=== PATIENT | female | born 1940 | race Caucasian/White ===

== ENCOUNTER → 2016-10-05 | Day surgery (SDC) | payer OTHER ==
[~2016-10-05] MED LIST: LACTATED RINGER'S 1000 ML INJ 1,000 ML ONE; LISI-363 PO; NORV10TA PO; PROPOFOL 500 MG/50 ML BTL IV ONE; SUCR1TAB PO; ZIAC106.25 PO
--- NOTE | 2016-10-05 12:13 | GIPROC ---
[facility] [address] [facility] [place], [address] COLONOSCOPY PROCEDURE REPORT EXAM DATE: 10/05/2016 PATIENT NAME: Rhea Leon MR #: [id number] BIRTHDATE: 1940 ENDOSCOPIST: Artie Ham MD ORDER #: [id number] WASHING MACHINE REPAIRER: Carol Aguirre RN STATUS: outpatient INDICATIONS: The patient is a 76 yr old female here for a colonoscopy due to anemia, non-specific PROCEDURE PERFORMED: Colonoscopy, diagnostic MEDICATIONS: None and Per Anesthesia. PREP QUALITY: fair ESTIMATED BLOOD LOSS: None CONSENT: The patient understands the risks and benefits of the procedure and understands that these risks include, but are not limited to: sedation, allergic reaction, infection, perforation and/or bleeding. Alternative means of evaluation and treatment include, among others: physical exam, x-rays, and/or surgical intervention. The patient elects to proceed with this endoscopic procedure. medical equipment was checked for proper function. Hand hygiene and appropriate measures for infection prevention was taken. After the risks, benefits and alternatives of the procedure were thoroughly explained, Informed consent was verified, confirmed and timeout was successfully executed by the treatment team. A digital exam revealed no abnormalities of the rectum The EC-3490Li ([id number]) and EC-[id number] ([id number]) endoscope was introduced through the anus and advanced to the cecum, which was identified by both the appendix and ileocecal valve. The instrument was then slowly withdrawn as the colon was fully examined. COLON FINDINGS: Moderate diverticulosis was noted in the sigmoid colon and descending colon. The colon mucosa was otherwise normal. Retroflexed views revealed no abnormalities The scope was then completely withdrawn from the patient and the procedure terminated. ADVERSE EVENTS: There were no complications. IMPRESSIONS: 1. Moderate diverticulosis was noted in the sigmoid colon and descending colon 2. The colon mucosa was otherwise normal 3. Retroflexed views revealed no abnormalities 4. Revealed no abnormalities of the rectum RECOMMENDATIONS: 1. Yearly hemoccult 2. High fiber diet 3. No clear reason for the anemia, if continue, may consider capsule endoscopy RTC in 3 wks check cbc in 2 wks RECALL: Return 5 years Colonoscopy Atrie Ham MD eSigned: Artie Ham MD 10/05/2016 12:13 PM cc: Tamia Perez M.D.
--- NOTE | 2016-10-05 12:23 | GIPROC ---
[facility] [address] [facility] [place], [address] EGD PROCEDURE REPORT EXAM DATE: 10/05/2016 PATIENT NAME: Rhea Leon MR #: [id number] BIRTHDATE: 1940 ATTENDING: Artie Ham MD ORDER #: [id number] POWERHOUSE OPERATOR: Carol Aguirre RN STATUS: outpatient INDICATIONS: The patient is a 76 yr old female here for an EGD due to anemia and H/O partial gastrectomy PROCEDURE PERFORMED: EGD w/ biopsy EGD w/ dilation of esophagus via guidewire MEDICATIONS: None and Per Anesthesia. TOPICAL ANESTHETIC: none CONSENT: The patient understands the risks and benefits of the procedure and understands that these risks include, but are not limited to: sedation, allergic reaction, infection, perforation and/or bleeding. Alternative means of evaluation and treatment include, among others: physical exam, x-rays, and/or surgical intervention. The patient elects to proceed with this endoscopic procedure. medical equipment was checked for proper function. Hand hygiene and appropriate measures for infection prevention was taken. After the risks, benefits and alternatives of the procedure were thoroughly explained, Informed consent was verified, confirmed and timeout was successfully executed by the treatment team. The patient was anesthetized with topical anesthesia and the EC-3490Li ([id number]) endoscope was introduced through the mouth and advanced to the second portion of the duodenum. Retroflexed views revealed a hiatal hernia The gastroscope was then slowly withdrawn and removed. Erythema at surgical anastamosis Bx done. Esophageal stricture s/p dilation savary guide 16 mm. The endoscopy was otherwise normal. ADVERSE EVENTS: There were no complications. IMPRESSIONS: 1. Erythema at surgical anastamosis Bx done 2. Esophageal stricture s/p dilation savary guide 16 mm 3. Normal endoscopy otherwise 4. Retroflexed views revealed a hiatal hernia RECOMMENDATIONS: 1. Await biopsy results. Biopsy results will not be ready for 7-10 days. If you don't hear from us in two weeks, call our office for biopsy results. 2. Avoid NSAIDS 3. Anti-reflux regimen PATIENT CONDITION: stable DISPOSITION: Home REPEAT EXAM: Return as needed for EGD Artie Ham MD eSigned: Artie Ham MD 10/05/2016 12:23 PM cc: Tamia Perez M.D.
== END | disposition home or self-care (01) ==
LOC: ESDC 09:50
PROVIDERS: ATTEND Hospitalist
DX: D64.9 Anemia, unspecified (principal); K57.90 Diverticulosis of intestine, part unspecified, without perforation or abscess without bleeding; K22.2 Esophageal obstruction; K44.9 Diaphragmatic hernia without obstruction or gangrene; K63.89 Other specified diseases of intestine
CPT/HCPCS: 00740; 00810; 43239; 43248; 45378; 88305; 88312; J7120

== ENCOUNTER 2017-03-07 15:14 | Inpatient (IN) | payer OTHER, MEDICARE ==
[~2017-03-07] VITALS: Ht 149.9 cm; Wt 52.4 kg
[~2017-03-07 15:14] MED LIST changes: -LACTATED RINGER'S 1000 ML INJ 1,000 ML ONE; -PROPOFOL 500 MG/50 ML BTL IV ONE
[2017-03-07 15:18] VITALS: BP 133/60; PULSE 113; RESP 22; TEMP 97.3; O2SAT 98
[2017-03-07 15:59] LABS: BLOOD, URINE TRACE (NEG); GLUCOSE,URINE NEG (NEG); KETONE, URINE NEG (NEG); NITRITE,URINE NEG (NEG)
[2017-03-07] MEDS ORDERED: SODIUM CHLOR 0.9% 1000 ML INJ 1,000 ML IV SCH (16:16)
[2017-03-07] MEDS ORDERED: DOESN'T KNOW (16:20)
[2017-03-07] MEDS ORDERED: BUSP10TA PO (16:22)
[2017-03-07] MEDS ORDERED: SODIUM CHLORIDE 0.9% FLUSH 10 ML FLUSH IV FLUSH PRN ×2 (16:30→18:45)
[2017-03-07] MEDS ORDERED: ONDANSETRON HCL 4 MG/2 ML VIAL IVP ONE (16:30)
--- NOTE | 2017-03-07 16:38 | PD ---
HPI Chief Complaint: General Weakness Time Seen by Provider: 16:05 Travel History International Travel<30 days: No Contact w/Intl Traveler<30days: No Traveled to known affect area: No History of Present Illness HPI The patient is a 76-year-old female who presents to the emergency department for multiple complaints. The patient states she was doing well earlier this year until approximately 2-3 months ago when she developed multiple symptoms. The patient complains of intermittent headaches, dizziness, nausea, vomiting, and epigastric abdominal distention. The patient states she underwent workup by her neurologist, Dr. Adler, and had an outpatient CT the brain which revealed scarring from a possible old CVA. She has an appointment tomorrow to see her neurologist. She also complains of intermittent nausea, vomiting, with epigastric pain. The patient recently underwent endoscopy by her wrapper cashier, Dr. Miller, and the patient states she was told she had a hiatal hernia. She also thinks she was diagnosed with gastroparesis. She does note approximately a 13 pound weight loss over the last 6 weeks, secondary to decreased oral intake and decreased appetite. She denies any dysuria, frequency, urgency, or diarrhea. She denies any acute chest pain or shortness of breath. She does note generalized weakness with decreased ability to get out of the chair and ambulate at home, where she lives with her . PFSH Past Medical History Anxiety: Yes COPD: Yes Cerebrovascular Accident: Yes Diminished Hearing: No Gastrointestinal Disorders: Yes (GASTROPARESIS) Hypertension: Yes Neurologic: Yes (VERTIGO) Ulcer: Yes ?: Not Past Surgical History Abdominal Surgery: Yes (STOMACH REROUTING 25 YRS AGO) Hysterectomy: Yes Social History Alcohol Use: No Tobacco Use: No Substance Use: No Allergies-Medications (Allergen,Severity, Reaction): Coded Allergies: No Known Allergies (Unverified Adverse Reaction, Unknown, 03/07/17) Reported Meds & Prescriptions Reported Meds & Active Scripts Active Reported Buspirone (Buspirone HCl) 10 Mg Tab 10 Mg PO BID [Doesn't Know] Review of Systems Except as stated in HPI: all other systems reviewed are Neg General / Constitutional: No: Fever Eyes: Positive: Visual changes HENT: Positive: Headaches, Lightheadedness Cardiovascular: No: Chest Pain or Discomfort Respiratory: No: Shortness of Breath Gastrointestinal: Positive: Nausea, Vomiting, Abdominal Pain, Loss of Appetite , No: Diarrhea Genitourinary: No: Dysuria Musculoskeletal: Positive: Weakness Neurologic: Positive: Weakness, Dizziness Physical Exam Narrative GENERAL: Awake, alert, pleasant 76-year-old female who appears her stated age and is in no acute respiratory distress. SKIN: Focused skin assessment warm/dry. HEAD: Atraumatic. Normocephalic. EYES: Pupils equal and round. Mild pallor noted of the lower lids. ENT: No nasal bleeding or discharge. Slightly dry mucous membranes. Upper and lower dentures in place. NECK: Trachea midline. No JVD. CARDIOVASCULAR: Regular, tachycardic with a heart rate of 105. RESPIRATORY: No accessory muscle use. Clear to auscultation. Breath sounds equal bilaterally. GASTROINTESTINAL: Abdomen soft, palpable mass versus hernia right upper quadrant. Well-healed midline scar. MUSCULOSKELETAL: No obvious deformities. No clubbing. No cyanosis. No edema. Back: No CVA tenderness. No tenderness over the thoracic or lumbar vertebrae. NEUROLOGICAL: Awake and alert. No obvious cranial nerve deficits. Motor grossly within normal limits. Normal speech. Nonfocal. Oriented 4. PSYCHIATRIC: Appropriate mood and affect; insight and judgment normal. Data Data Last Documented VS Vital Signs Date Time Temp Pulse Resp B/P (MAP) Pulse Ox O2 Delivery O2 Flow Rate FiO2 03/07/17 17:35 97.8 88 22 135/57 (83) 98 Room Air Orders Orders Urinalysis - C+S If Indicated (03/07/17 15:22) Complete Blood Count With Diff (03/07/17 16:16) Comprehensive Metabolic Panel (03/07/17 16:16) Lipase (03/07/17 16:16) Lactic Acid (03/07/17 16:16) Ct Abd/Pel W/O Iv Contrast (03/07/17 16:16) Iv Access Insert/Monitor (03/07/17 16:16) Ecg Monitoring (03/07/17 16:16) Oximetry (03/07/17 16:16) Ondansetron Inj (Zofran Inj) (03/07/17 16:30) Sodium Chlor 0.9% 1000 Ml Inj (Ns 1000 M (03/07/17 16:16) Sodium Chloride 0.9% Flush (Ns Flush) (03/07/17 16:30) Electrocardiogram (03/07/17 16:16) Thyroid Stimulating Hormone (03/07/17 16:16) Urine Culture (03/07/17 15:21) Ceftriaxone Inj (Rocephin Inj) (03/07/17 17:15) Sodium Chlor 0.9% 1000 Ml Inj (Ns 1000 M (03/07/17 18:00) Sodium Chlor 0.9% 1000 Ml Inj (Ns 1000 M (03/07/17 18:00) Admit Order (Ed Use Only) (03/07/17 18:10) Labs Laboratory Tests Test 03/07/17 15:21 03/07/17 16:40 Urine Collection Type CLEAN CATCH Urine Color YELLOW Urine Turbidity SLIGHT Urine pH 6.0 Urine Specific [place] 1.020 Urine Protein 30 mg/dL Urine Glucose (UA) NEG mg/dL Urine Ketones NEG mg/dL Urine Occult Blood TRACE Urine Nitrite NEG Urine Bilirubin NEG Urine Leukocyte Esterase SMALL Urine RBC 0-3 /hpf Urine WBC 25-49 /hpf Urine WBC Clumps FEW Urine Squamous Epithelial Cells > 8 /hpf Urine Amorphous Sediment FEW Urine Bacteria MANY /hpf Microscopic Urinalysis Comment CULTURE INDICATED Urine Collection Time 1521 White Blood Count 29.9 TH/MM3 Red Blood Count 3.99 MIL/MM3 Hemoglobin 9.3 GM/DL Hematocrit 28.3 % Mean Corpuscular Volume 70.8 FL Mean Corpuscular Hemoglobin 23.4 PG Mean Corpuscular Hemoglobin Concent 33.0 % Red Cell Distribution Width 17.3 % Platelet Count 583 TH/MM3 Mean Platelet Volume 9.0 FL Neutrophils (%) (Auto) 97.8 % Lymphocytes (%) (Auto) 0.5 % Monocytes (%) (Auto) 1.2 % Eosinophils (%) (Auto) 0.4 % Basophils (%) (Auto) 0.1 % Neutrophils # (Auto) 29.3 TH/MM3 Lymphocytes # (Auto) 0.1 TH/MM3 Monocytes # (Auto) 0.4 TH/MM3 Eosinophils # (Auto) 0.1 TH/MM3 Basophils # (Auto) 0.0 TH/MM3 CBC Comment AUTO DIFF Blood Urea Nitrogen 85 MG/DL Creatinine 1.60 MG/DL Random Glucose 124 MG/DL Total Protein 7.4 GM/DL Albumin 2.1 GM/DL Calcium Level 9.8 MG/DL Alkaline Phosphatase 204 U/L Aspartate Amino Transf (AST/SGOT) 25 U/L Alanine Aminotransferase (ALT/SGPT) 22 U/L Total Bilirubin 0.3 MG/DL Sodium Level 136 MEQ/L Potassium Level 2.9 MEQ/L Chloride Level 101 MEQ/L Carbon Dioxide Level 23.8 MEQ/L Anion Gap 11 MEQ/L Estimat Glomerular Filtration Rate 31 ML/MIN Lactic Acid Level 1.0 mmol/L Lipase 76 U/L Thyroid Stimulating Hormone 3rd Gen 0.564 uIU/ML MDM Medical Decision Making Medical Screen Exam Complete: Yes Emergency Medical Condition: Yes Medical Record Reviewed: Yes Interpretation(s) EKG reveals sinus tachycardia with a heart rate of 106. PVC noted. Last Impressions Abdomen/Pelvis CT 03/07/17 1616 Signed Impressions: Service Date/Time: Tuesday, March 07, 2017 16:49 - CONCLUSION: Large solitary mass in the right lobe of the liver inferiorly. Differential includes either a large metastatic lesion or conceivably large septic emboli. There is also marked induration of the surrounding mesentery. There is a small intra-abdominal wall hernia. No other malignancy is identified or mass is seen. The mass would be amenable to CT-guided biopsy . Atrophic left kidney Kyler Cr MD Laboratory Tests Test 03/07/17 15:21 03/07/17 16:40 Urine Collection Type CLEAN CATCH Urine Color YELLOW Urine Turbidity SLIGHT Urine pH 6.0 Urine Specific [place] 1.020 Urine Protein 30 mg/dL Urine Glucose (UA) NEG mg/dL Urine Ketones NEG mg/dL Urine Occult Blood TRACE Urine Nitrite NEG Urine Bilirubin NEG Urine Leukocyte Esterase SMALL Urine RBC 0-3 /hpf Urine WBC 25-49 /hpf Urine WBC Clumps FEW Urine Squamous Epithelial Cells > 8 /hpf Urine Amorphous Sediment FEW Urine Bacteria MANY /hpf Microscopic Urinalysis Comment CULTURE INDICATED Urine Collection Time 1521 White Blood Count 29.9 TH/MM3 Red Blood Count 3.99 MIL/MM3 Hemoglobin 9.3 GM/DL Hematocrit 28.3 % Mean Corpuscular Volume 70.8 FL Mean Corpuscular Hemoglobin 23.4 PG Mean Corpuscular Hemoglobin Concent 33.0 % Red Cell Distribution Width 17.3 % Platelet Count 583 TH/MM3 Mean Platelet Volume 9.0 FL Neutrophils (%) (Auto) 97.8 % Lymphocytes (%) (Auto) 0.5 % Monocytes (%) (Auto) 1.2 % Eosinophils (%) (Auto) 0.4 % Basophils (%) (Auto) 0.1 % Neutrophils # (Auto) 29.3 TH/MM3 Lymphocytes # (Auto) 0.1 TH/MM3 Monocytes # (Auto) 0.4 TH/MM3 Eosinophils # (Auto) 0.1 TH/MM3 Basophils # (Auto) 0.0 TH/MM3 CBC Comment AUTO DIFF Blood Urea Nitrogen 85 MG/DL Creatinine 1.60 MG/DL Random Glucose 124 MG/DL Total Protein 7.4 GM/DL Albumin 2.1 GM/DL Calcium Level 9.8 MG/DL Alkaline Phosphatase 204 U/L Aspartate Amino Transf (AST/SGOT) 25 U/L Alanine Aminotransferase (ALT/SGPT) 22 U/L Total Bilirubin 0.3 MG/DL Sodium Level 136 MEQ/L Potassium Level 2.9 MEQ/L Chloride Level 101 MEQ/L Carbon Dioxide Level 23.8 MEQ/L Anion Gap 11 MEQ/L Estimat Glomerular Filtration Rate 31 ML/MIN Lactic Acid Level 1.0 mmol/L Lipase 76 U/L Thyroid Stimulating Hormone 3rd Gen 0.564 uIU/ML Differential Diagnosis Differential diagnoses includes symptomatic anemia, hypothyroidism, hyponatremia , dehydration, small bowel obstruction, partial small bowel obstruction, gastroparesis, failure to thrive, carcinoma, UTI, pneumonia, sepsis. Narrative Course IV was established, labs are drawn and sent, and the patient was placed on cardiac telemetry monitoring and continuous pulse oximetry monitoring. EKG was ordered and interpreted. CBC and TSH were sent to lab. CT of the abdomen and pelvis was ordered to evaluate for possible small bowel obstruction/partial small bowel obstruction. CT of the abdomen and pelvis reveals a large hepatic mass, likely metastatic. UA is positive with WBCs, the patient was administered Rocephin. The patient's white count was 29.9 with a BUN of 85, the patient is hemoconcentrated with leukocytosis, was administered 2 L of IV fluids. The patient will be admitted to the hospital for sepsis and possible metastatic hepatic mass with subsequent dehydration and decreased oral intake. I discussed the findings of the CT with the patient at bedside and her . Sepsis Criteria SIRS Criteria (2 or more): Heart rate over 90 Sepsis Criteria (SIRS+source): Infect source susp/known Severe Sepsis (+one): Acute Oliguria/Renal Failure Criteria Outcome: Meets severe sepsis criteria Physician Communication Physician Communication [facility] hospitalist were paged for admission. I discussed the patient with Dr. Thompson who agrees with admission. Diagnosis Primary Impression: Sepsis Qualified Codes: A41.9 - Sepsis, unspecified organism Additional Impressions: UTI (urinary tract infection) Qualified Codes: N30.00 - Acute cystitis without hematuria Dehydration Liver mass, right lobe Admitting Information Admitting Physician Requests: Admit Condition: Stable Jordan Guzman MD Mar 07, 2017 16:38
[2017-03-07 16:48] LABS: METHOD OF COLLECTION CLEAN CATCH; URINE COLOR YELLOW (YELLW/STRAW)
[2017-03-07 16:49] LABS: BACTERIA, URINE MANY /hpf; COMMENT (UR) CULTURE INDICATED; CULTURE IF INDICATED CULTURE INDICATED; RBC, URINE 0-3 /hpf (0-3); SQUAMOUS EPITHELIAL CELL URINE > 8 /hpf (0-5)
[2017-03-07 16:55] VITALS: O2SAT 96
--- NOTE | 2017-03-07 17:14 | RADRPT ---
EXAM DATE/TIME: 03/07/2017 16:49 [facility] COMPARISON: No previous studies available for comparison. INDICATIONS : Weakness with vomiting and epigastric abdominal distention. ORAL CONTRAST: No oral contrast ingested. RADIATION DOSE: 7.04 CTDIvol (mGy) MEDICAL HISTORY : Cerebrovascular disease. Chronic obstructive pulmonary disease. Gastroparesis.Hypertension. SURGICAL HISTORY : Hysterectomy. Stomach surgery. ENCOUNTER: Initial ACUITY: 2 months PAIN SCALE: 6/10 LOCATION: upper quadrant TECHNIQUE: Volumetric scanning of the abdomen and pelvis was performed. Using automated exposure control and ad justment of the mA and/or kV according to patient size, radiation dose was kept as low as reasonably achievable to obtain optimal diagnostic quality images. DICOM format image data is available electro nically for review and comparison. FINDINGS: LOWER LUNGS: The visualized lower lungs are clear. LIVER: There is a large mass in the inferior aspect of the liver. On the axial images it measures 9.4 x 6.4 cm. Its hypodense could be a solitary abnormality. The fat around the lesion is indurated. There are numerous gallstones and noninflamed gallbladder.. SPLEEN: Normal size without lesion. PANCREAS: Within normal limits. KIDNEYS: The left kidney is mildly atrophic.. There is no mass, stone, or hydronephrosis. ADRENAL GLANDS: Within normal limits. VASCULAR: There is no aortic aneurysm but there is dense atherosclerotic disease. BOWEL/MESENTERY: There is diffuse induration of the mesentery around the liver lesion.. ABDOMINAL WALL: There is a small midline fat containing hernia anterior to the level of the large liver lesion. RETROPERITONEUM: There is no lymphadenopathy. BLADDER: No wall thickening or mass. REPRODUCTIVE: Within normal limits. INGUINAL: There is no lymphadenopathy or hernia. MUSCULOSKELETAL: Within normal limits for patient age. CONCLUSION: Large solitary mass in the right lobe of the liver inferiorly. Differential includes either a large m etastatic lesion or conceivably large septic emboli. There is also marked induration of the surroundi ng mesentery. There is a small intra-abdominal wall hernia. No other malignancy is identified or mass is seen. The mass would be amenable to CT-guided biopsy . Atrophic left kidney Kyler Cr MD on March 07, 2017 at 17:07 Board Certified Radiologist. This report was verified electronically.
[2017-03-07] MEDS ORDERED: cefTRIAXone INJ 1,000 MG in SODIUM CHLORIDE 0.9% INJ 100 ML IV ONE (17:15)
[2017-03-07 17:22] LABS: ANION GAP 11 MEQ/L (5-15); BICARBONATE 23.8 MEQ/L (21.0-32.0); BLOOD UREA NITROGEN 85 MG/DL (7-18); CHLORIDE 101 MEQ/L (98-107); SODIUM (NA) 136 MEQ/L (136-145)
[2017-03-07 17:25] LABS: AUTOMATED NEUTROPHIL # 29.3 TH/MM3 (1.8-7.7); BASOPHIL % 0.1 % (0.0-2.0); EOSINOPHIL # 0.1 TH/MM3 (0-0.4); EOSINOPHIL % 0.4 % (0.0-4.0); HEMATOCRIT 28.3 % (35.0-46.0); LYMPH % 0.5 % (9.0-44.0); LYMPHOCYTE # 0.1 TH/MM3 (1.0-4.8); MEAN CELL VOLUME 70.8 FL (80.0-100.0); MEAN CORPUSCULAR HEMOGLOBIN 23.4 PG (27.0-34.0); MONO % 1.2 % (0.0-8.0); NEUT % 97.8 % (16.0-70.0); PLATELET COUNT 583 TH/MM3 (150-450); RED BLOOD COUNT 3.99 MIL/MM3 (4.00-5.30); RED CELL DISTRIBUTION WIDTH 17.3 % (11.6-17.2); WHITE BLOOD COUNT 29.9 TH/MM3 (4.0-11.0)
[2017-03-07 17:31] LABS: POTASSIUM 2.9 MEQ/L (3.5-5.1)
[2017-03-07 17:35] VITALS: BP 135/57; PULSE 88; RESP 22; TEMP 97.8; O2SAT 98
[2017-03-07 17:50] LABS: HEMO FLAGS AUTO DIFF
[2017-03-07 17:57] LABS: ALKALINE PHOSPHATASE 204 U/L (45-117); ALT (GPT) 22 U/L (10-53); AST (GOT) 25 U/L (15-37); GLOMERULAR FILTRATION RATE 31 ML/MIN (>89); TOTAL BILIRUBIN ADULT 0.3 MG/DL (0.2-1.0)
[2017-03-07] MEDS ORDERED: SODIUM CHLOR 0.9% 1000 ML INJ 1,000 ML IV ONE ×2 (18:00)
[2017-03-07 18:17] LABS: BANDS 16 % (0-6); NEUTROPHIL # MANUAL DIFF 29.9 TH/MM3 (1.8-7.7); PLATELET ESTIMATE SMEAR HIGH (NORMAL); PLATELET MORPHOLOGY NORMAL (NORMAL); POLYS (SEG NEUTROPHILS) 84 % (16-70); SCAN/DIFF FINAL DIFF MANUAL; WBC DIFF SAMPLE 100
[2017-03-07] MEDS ORDERED: RESP: ALBUTEROL 2.5 MG/IPRATROPIUM 0.5 MG NEB (PRN) NEB (18:45)
[2017-03-07] MEDS ORDERED: SENNOSIDES 8.6 MG TAB PO PRN (18:45)
[2017-03-07] MEDS ORDERED: NALOXONE HCL 0.4 MG/ML AMP IV PUSH PRN (18:45)
--- NOTE | 2017-03-07 18:51 | HHI.HP ---
HPI Service [facility] Primary Care Physician Tamia Perez MD Admission Diagnosis Sepsis, UTI, dehydration, liver mass, hypokalemia Diagnoses: (1) Sepsis (2) UTI (urinary tract infection) (3) Liver mass, right lobe (4) Dehydration Chief Complaint: weakness Travel History International Travel<30 Days: No Contact w/Intl Traveler <30 Da: No Traveled to Known Affected Are: No Sepsis Criteria SIRS Criteria (2 or more): Heart rate over 90, WBC > 19313, < 4000 or > 10% bands Sepsis Criteria (SIRS+source): Infect source susp/known History of Present Illness Written by Jocelyn Pineda, acting as scribe for Dr. Thompson on 03/07/17 at 18:27. Patient is a 76-year-old female who came to the emergency room complaining of weakness for 2-3 months worsening over the last forty-eight hours. Her finally convinced her to come to the emergency room. Here she has been tachycardic and complaining of pain "all over ". Patient says that she has been followed by multiple doctors for multiple nonspecific complaints including neurology for dizziness, gastroenterology for gastric ulcers and bleeding in the past. At this time she is found to have urinary tract infection by the ER physician. She is also quite dehydrated with electrolyte disturbances. A CT of the abdomen was done and does show a large hepatic mass which has previously been unknown to the patient. She does report a 13 pound weight loss in the last six weeks. She has been unable to eat and had associated nausea and vomiting. She has a history of a hiatal hernia but that has not been a problem recently. She also says she has gastroparesis. She reports urinary frequency and increased fatigue. She notes no specific abdominal pain but does have intermittent diarrhea and constipation without any evidence of upper or lower GI bleeding. The diffuse pain is intermittent and worse with movement. It appears to be musculoskeletal on exam. There are no specific relieving factors for her moderate to severe diffuse pain. The patient has been admitted to the hospital with signs and symptoms of sepsis related to apparent urinary tract infection. She also appears quite volume contracted and will require aggressive intravenous hydration. For these reasons the patient has been admitted to the hospital. Discussed with patient, ER M.D. and spouse at bedside. Review of Systems Constitutional: COMPLAINS OF: Fatigue, Weight loss, DENIES: Fever, Chills Eyes: COMPLAINS OF: Blurred vision, Vision loss (macular degeneration), DENIES : Diplopia Respiratory: DENIES: Cough, Sputum production, Shortness of breath Cardiovascular: DENIES: Chest pain Gastrointestinal: COMPLAINS OF: Abdominal pain, Constipation (intermittent diarrhea and constipation), Diarrhea, DENIES: Black stools, Bloody stools, Nausea, Vomiting Integumentary: DENIES: Rash Except as stated in HPI: all other systems reviewed are Neg Past Family Social History Past Medical History Gastroparesis Hypertension COPD Anxiety Gastric ulcer Vertigo History of CVA Past Surgical History Stomach rerouting 25 years ago from gastric ulcer Hysterectomy Reported Medications Active Reported [Doesn't Know] Allergies: Coded Allergies: No Known Allergies (Unverified Allergy, Unknown, 03/07/17) Active Ordered Medications Current Medications Medications (Trade) Dose Ordered Sig/Latha Route Start Time Stop Time Status Last Admin (NS Flush) 2 ml UNSCH PRN IV FLUSH 03/07/17 16:30 Sodium Chloride 1,000 ml @ 999 mls/hr BOLUS ONCE IV 03/07/17 18:00 03/07/17 19:00 Sodium Chloride 1,000 ml @ 999 mls/hr BOLUS ONCE IV 03/07/17 18:00 03/07/17 19:00 Family History Paternal medical history significant for stroke. Maternal medical history of breast cancer. Sister had breast cancer. Social History Denies any current tobacco use, states she quit 5 y ears ago, uses e-cig. Denies any alcohol use. Denies any illicit drug use. Physical Exam Vital Signs Vital Signs Date Time Temp Pulse Resp B/P (MAP) Pulse Ox O2 Delivery O2 Flow Rate FiO2 03/07/17 17:35 97.8 88 22 135/57 (83) 98 Room Air 03/07/17 16:55 96 03/07/17 15:18 97.3 113 22 133/60 (84) 98 Physical Exam GENERAL: This is an elderly, thin-appearing female patient, lying in bed in no apparent distress. SKIN: No rashes, ecchymoses or lesions. Warm and dry. HEENT: Atraumatic. Normocephalic. Pupils equal round and reactive. Extraocular motions intact. No scleral icterus. No injection or drainage. Nose without bleeding. Airway patent. NECK: Trachea midline. No JVD. Shortened neck. CARDIOVASCULAR: Regular rate and rhythm gallops, or rubs. 3/6 systolic murmur RESPIRATORY: Clear to auscultation. Breath sounds equal bilaterally. No wheezes , rales, or rhonchi. Increase in AP diameter. GASTROINTESTINAL: Abdomen soft, diffusely tender, severe hepatomegaly noted, 8- finger length. MUSCULOSKELETAL: Extremities without clubbing, cyanosis, or edema. No joint tenderness, effusion, or edema noted. NEUROLOGICAL: Awake and alert. Cranial nerves II through XII intact. Motor and sensory grossly within normal limits. Five out of 5 muscle strength in all muscle groups. Normal speech. Laboratory Laboratory Tests Test 03/07/17 15:21 03/07/17 16:40 Urine Collection Type CLEAN CATCH Urine Color YELLOW Urine Turbidity SLIGHT Urine pH 6.0 Urine Specific Derwent 1.020 Urine Protein 30 Urine Glucose (UA) NEG Urine Ketones NEG Urine Occult Blood TRACE Urine Nitrite NEG Urine Bilirubin NEG Urine Leukocyte Esterase SMALL Urine RBC 0-3 Urine WBC 25-49 Urine WBC Clumps FEW Urine Squamous Epithelial Cells > 8 Urine Amorphous Sediment FEW Urine Bacteria MANY Microscopic Urinalysis Comment CULTURE INDICATED Urine Collection Time 1521 White Blood Count 29.9 Red Blood Count 3.99 Hemoglobin 9.3 Hematocrit 28.3 Mean Corpuscular Volume 70.8 Mean Corpuscular Hemoglobin 23.4 Mean Corpuscular Hemoglobin Concent 33.0 Red Cell Distribution Width 17.3 Platelet Count 583 Mean Platelet Volume 9.0 Neutrophils (%) (Auto) 97.8 Lymphocytes (%) (Auto) 0.5 Monocytes (%) (Auto) 1.2 Eosinophils (%) (Auto) 0.4 Basophils (%) (Auto) 0.1 Neutrophils # (Auto) 29.3 Lymphocytes # (Auto) 0.1 Monocytes # (Auto) 0.4 Eosinophils # (Auto) 0.1 Basophils # (Auto) 0.0 CBC Comment AUTO DIFF Differential Total Cells Counted 100 Neutrophils % (Manual) 84 Band Neutrophils % 16 Neutrophils # (Manual) 29.9 Differential Comment FINAL DIFF MANUAL Platelet Estimate HIGH Platelet Morphology Comment NORMAL Red Cell Morphology Comment NORMAL Blood Urea Nitrogen 85 Creatinine 1.60 Random Glucose 124 Total Protein 7.4 Albumin 2.1 Calcium Level 9.8 Alkaline Phosphatase 204 Aspartate Amino Transf (AST/SGOT) 25 Alanine Aminotransferase (ALT/SGPT) 22 Total Bilirubin 0.3 Sodium Level 136 Potassium Level 2.9 Chloride Level 101 Carbon Dioxide Level 23.8 Anion Gap 11 Estimat Glomerular Filtration Rate 31 Lactic Acid Level 1.0 Lipase 76 Thyroid Stimulating Hormone 3rd Gen 0.564 Date/Time Source Procedure Growth Status 03/07/17 15:21 Urine Clean Catch Urine Culture Pending Received Result Diagram: 03/07/17 1640 03/07/17 1640 Imaging Last Impressions Abdomen/Pelvis CT 03/07/17 1616 Signed Impressions: Service Date/Time: Tuesday, March 07, 2017 16:49 - CONCLUSION: Large solitary mass in the right lobe of the liver inferiorly. Differential includes either a large metastatic lesion or conceivably large septic emboli. There is also marked induration of the surrounding mesentery. There is a small intra-abdominal wall hernia. No other malignancy is identified or mass is seen. The mass would be amenable to CT-guided biopsy . Atrophic left kidney Kyler Cr MD Septic Shock Reassessment Septic shock perfusion: reassessment completed Caprini VTE Risk Assessment Caprini VTE Risk Assessment: Mod/High Risk (score >= 2) Caprini Risk Assessment Model Point Value = 1 Point Value = 2 Point Value = 3 Point Value = 5 Age 41-60 Minor surgery BMI > 25 kg/m2 Swollen legs Varicose veins or History of unexplained or recurrent spontaneous Oral contraceptives or hormone replacement Sepsis (< 1 month) Serious lung disease, including pneumonia (< 1 month) Abnormal pulmonary function Acute myocardial infarction Congestive heart failure (< 1 month) History of inflammatory bowel disease Medical patient at bed rest Age 61-74 Arthroscopic surgery Major open surgery (> 45 min) Laparoscopic surgery (> 45 min) Malignancy Confined to bed (> 72 hours) Immobilizing plaster cast Central venous access Age >= 75 History of VTE Family history of VTE Factor V Leiden Prothrombin [id number] Lupus anticoagulant Anticardiolipin antibodies Elevated serum homocysteine Heparin-induced thrombocytopenia Other congenital or acquired thrombophilia Stroke (< 1 month) Elective arthroplasty Hip, pelvis, or leg fracture Acute spinal cord injury (< 1 month) Prophylaxis Regimen Total Risk Factor Score Risk Level Prophylaxis Regimen 0-1 Low Early ambulation 2 Moderate Order ONE of the following: *Sequential Compression Device (SCD) *Heparin 5000 units SQ BID 3-4 Higher Order ONE of the following medications: *Heparin 5000 units SQ TID *Enoxaparin/Lovenox 40 mg SQ daily (WT < 150 kg, CrCl > 30 mL/min) *Enoxaparin/Lovenox 30 mg SQ daily (WT < 150 kg, CrCl > 10-29 mL/min) *Enoxaparin/Lovenox 30 mg SQ BID (WT < 150 kg, CrCl > 30 mL/min) AND/OR *Sequential Compression Device (SCD) 5 or more Highest Order ONE of the following medications: *Heparin 5000 units SQ TID (Preferred with Epidurals) *Enoxaparin/Lovenox 40 mg SQ daily (WT < 150 kg, CrCl > 30 mL/min) *Enoxaparin/Lovenox 30 mg SQ daily (WT < 150 kg, CrCl > 10-29 mL/min) *Enoxaparin/Lovenox 30 mg SQ BID (WT < 150 kg, CrCl > 30 mL/min) AND *Sequential Compression Device (SCD) Assessment and Plan Problem List: (1) Sepsis ICD Code: A41.9 - Sepsis, unspecified organism Status: Acute Plan: Secondary to sepsis Meet sepsis criteria (tachycardia, leukocytosis WBC 29.9) suspected source UTI. Lactic acid 1.0. UA obtained showing small amount of leukocyte esterase and presence of WBC. Urine culture pending follow. Given Rocephin x 1 in ED. Status post 2 L NS bolus in ED. Continue scheduled Rocephin. Continue IVF. (2) UTI (urinary tract infection) ICD Code: N39.0 - Urinary tract infection, site not specified Status: Acute Plan: UA showing presence of WBC. Given IV Rocephin in ED. Follow urine culture, pending. See above for plan. (3) ANU (acute kidney injury) ICD Code: N17.9 - Acute kidney failure, unspecified Plan: suspect secondary to UTI vs dehydration Creatinine on presentation 1.6/GFR 85. Status post 2 L NS bolus in ED. Will continue IVF. Follow BMP in am. Monitor intake and output closely. (4) Liver mass, right lobe ICD Code: R16.0 - Hepatomegaly, not elsewhere classified Status: Acute Plan: Abdominal/Pelvis CT reviewed showing large solitary mass in the right lobe of the liver inferiorly. Marked induration of the surrounding mesentery. Reports of a 13-pound weight loss over the course of 6 weeks. Will also check Lipase level. Will consult GI, appreciate further input and recommendations. Encourage PO intake, advance as tolerated. Zofran available PRN. IR for biopsy Check PT (5) Hypokalemia ICD Code: E87.6 - Hypokalemia Plan: Suspect secondary to dehydration vs poor intake K 2.9 on presentation. Will replete, follow repeat BMP in am. Continue cardiac telemetry, monitor for any arrhythmias. [place] [facility] Phys[place] Certification 2 Midnight Certification Type: Admission for Inpatient Services Order for Inpatient Services The services are ordered in accordance with Medicare regulations or non- Medicare payer requirements, as applicable. In the case of services not specified as inpatient-only, they are appropriately provided as inpatient services in accordance with the 2-midnight benchmark. Estimated LOS (days): 3 3 days is the estimated time the patient will need to remain in the hospital, assuming treatment plan goals are met and no additional complications. Post-Hospital Plan: Not yet determined Medical Decision Making Impression and Plan This note was transcribed by reg [jay]. I, Dr. Tammie Thompson personally performed the history, physical exam, and medical decision making; and confirmed the accuracy of the information in the transcribed note. agree with above Authenticated by Dr. Tammie Thompson on 03/07/17 at 18:52. Problem Qualifiers (1) Sepsis: Qualified Codes: A41.9 - Sepsis, unspecified organism (2) UTI (urinary tract infection): Qualified Codes: N30.00 - Acute cystitis without hematuria Jocelyn Pineda Mar 07, 2017 18:51 Tammie Thompson MD Mar 07, 2017 18:52
[2017-03-07 19:01] LABS: MAGNESIUM 2.1 MG/DL (1.5-2.5)
[2017-03-07 19:03] LABS: INTERNATIONAL NORMALIZED RATIO 1.4 RATIO
--- NOTE | 2017-03-07 19:24 | RADRPT ---
EXAM DATE/TIME: 03/07/2017 18:52 [facility] COMPARISON: No previous studies available for comparison. INDICATIONS : Short of breath MEDICAL HISTORY : Cerebrovascular disease. Chronic obstructive pulmonary disease. Gastroparesis. SURGICAL HISTORY : Hysterectomy. ENCOUNTER: Initial ACUITY: 2 days PAIN SCORE: 0/10 LOCATION: Bilateral chest FINDINGS: The heart size is upper limits of normal. Aorta is tortuous. Surgical clips are seen at the EG juncti on region. The lungs are clear. The lungs do appear hyperinflated. There is widening of the AP dimens ion of the chest. No effusion is seen. The bones are osteopenic. There is a levoscoliosis of the thor acic spine. CONCLUSION: Hyperinflated lungs. German Ibarra MD on March 07, 2017 at 19:21 Board Certified Radiologist. This report was verified electronically.
[2017-03-07] MEDS ORDERED: POTASSIUM PHOSPHATE INJ 30 MMOL in SODIUM CHLOR 0.9% 250 ML INJ 250 ML IV ONE (20:00)
[2017-03-07] MEDS: ENOXAPARIN SODIUM 40 MG/0.4 ML SYRINGE SQ SCH (20:01)
[2017-03-07 20:15] LABS: GAMMA GT 78 U/L (5-55); TRANSFERRIN IRON PROFILE 139 MG/DL (200-360)
[2017-03-07 20:25] VITALS: BP 178/87; TEMP 98.4
[2017-03-07 20:39] VITALS: O2SAT 100
[2017-03-07] MEDS: RESP: ALBUTEROL 2.5 MG/IPRATROPIUM 0.5 MG NEB (SCH) NEB (20:39)
[2017-03-07 20:40] VITALS: BP 176/76; PULSE 113; RESP 27; TEMP 96.2; O2SAT 100
[2017-03-07] MEDS: SODIUM CHLORIDE 0.9% FLUSH 10 ML FLUSH IV FLUSH SCH (21:29)
[2017-03-07] MEDS: SODIUM CHLOR 0.9% 1000 ML INJ 1,000 ML IV SCH (21:48)
[2017-03-08] VITALS (8 sets, daily range): BP systolic 131–182; BP diastolic 56–83; PULSE 66–112; RESP 16–24; TEMP 96.4–99; O2SAT 92–98
[2017-03-08] MEDS: ONDANSETRON HCL 4 MG/2 ML VIAL IVP PRN ×2 (00:09→06:51)
[2017-03-08] MEDS: ACETAMINOPHEN 325 MG TAB PO PRN ×3 (03:06→14:43)
[2017-03-08] MEDS: SODIUM CHLOR 0.9% 1000 ML INJ 1,000 ML IV SCH ×3 (04:33→23:12)
[2017-03-08 06:55] LABS: ALT (GPT) 19 U/L (10-53); ANION GAP 11 MEQ/L (5-15); AST (GOT) 21 U/L (15-37); BICARBONATE 21.5 MEQ/L (21.0-32.0); BLOOD UREA NITROGEN 66 MG/DL (7-18); CHLORIDE 110 MEQ/L (98-107); GLOMERULAR FILTRATION RATE 48 ML/MIN (>89); SODIUM (NA) 142 MEQ/L (136-145)
[2017-03-08 06:59] LABS: ALKALINE PHOSPHATASE 168 U/L (45-117); TOTAL BILIRUBIN ADULT 0.2 MG/DL (0.2-1.0)
[2017-03-08 07:36] LABS: AUTOMATED NEUTROPHIL # 19.7 TH/MM3 (1.8-7.7); BASOPHIL % 0.1 % (0.0-2.0); EOSINOPHIL % 0.1 % (0.0-4.0); HEMATOCRIT 26.2 % (35.0-46.0); LYMPH % 1.1 % (9.0-44.0); LYMPHOCYTE # 0.2 TH/MM3 (1.0-4.8); MEAN CELL VOLUME 71.3 FL (80.0-100.0); MEAN CORPUSCULAR HEMOGLOBIN 22.8 PG (27.0-34.0); MONO % 1.8 % (0.0-8.0); NEUT % 96.9 % (16.0-70.0); PLATELET COUNT 592 TH/MM3 (150-450); RED BLOOD COUNT 3.67 MIL/MM3 (4.00-5.30); RED CELL DISTRIBUTION WIDTH 17.9 % (11.6-17.2); WHITE BLOOD COUNT 20.3 TH/MM3 (4.0-11.0)
[2017-03-08 07:40] LABS: HEMO FLAGS AUTO DIFF
[2017-03-08] MEDS: RESP: ALBUTEROL 2.5 MG/IPRATROPIUM 0.5 MG NEB (SCH) NEB ×3 (07:44→21:00)
[2017-03-08 07:56] LABS: BANDS 1 % (0-6); NEUTROPHIL # MANUAL DIFF 19.9 TH/MM3 (1.8-7.7); POLYS (SEG NEUTROPHILS) 97 % (16-70); WBC DIFF SAMPLE 100
[2017-03-08 07:57] LABS: PLATELET ESTIMATE SMEAR HIGH (NORMAL); PLATELET MORPHOLOGY NORMAL (NORMAL); SCAN/DIFF FINAL DIFF MANUAL
[2017-03-08] MEDS: SODIUM CHLORIDE 0.9% FLUSH 10 ML FLUSH IV FLUSH SCH ×2 (09:00→20:46)
--- NOTE | 2017-03-08 10:29 | HHI.PR ---
Subjective Remarks Follow up sepsis and UTI. Patient seen and examined, sitting on side of bed comfortably. Denies any further pain. Afebrile overnight. Mild tachycardia. Plan for IR to biopsy today. Objective Vitals Vital Signs Date Time Temp Pulse Resp B/P (MAP) Pulse Ox O2 Delivery O2 Flow Rate FiO2 03/08/17 09:53 96.4 110 16 135/56 (82) 92 03/08/17 08:19 18 03/08/17 07:47 96 Nasal Cannula 2.00 03/08/17 04:00 97.5 110 24 159/64 (95) 94 03/08/17 00:00 99.0 109 24 131/57 (81) 98 03/07/17 22:00 Nasal Cannula 2.00 03/07/17 20:40 96.2 113 27 176/76 (109) 100 03/07/17 20:39 100 Nasal Cannula 2.00 03/07/17 20:25 98.4 108 24 178/87 (117) 97 Nasal Cannula 2.00 03/07/17 17:35 97.8 88 22 135/57 (83) 98 Room Air 03/07/17 16:55 96 03/07/17 15:18 97.3 113 22 133/60 (84) 98 I/O 03/07/17 03/07/17 03/07/17 03/08/17 03/08/17 03/08/17 07:00 15:00 23:00 07:00 15:00 23:00 Intake Total 2100 ml 1034 ml Balance 2100 ml 1034 ml Intake IV Total 2100 ml 1034 ml # Voids 6 # Bowel Movements 0 Result Diagram: 03/08/17 0607 03/08/17 0607 Imaging Last Impressions Abdomen/Pelvis CT 03/07/17 1616 Signed Impressions: Service Date/Time: Tuesday, March 07, 2017 16:49 - CONCLUSION: Large solitary mass in the right lobe of the liver inferiorly. Differential includes either a large metastatic lesion or conceivably large septic emboli. There is also marked induration of the surrounding mesentery. There is a small intra-abdominal wall hernia. No other malignancy is identified or mass is seen. The mass would be amenable to CT-guided biopsy . Atrophic left kidney Kyler Cr MD Chest X-Ray 03/07/17 0000 Signed Impressions: Service Date/Time: Tuesday, March 07, 2017 18:52 - CONCLUSION: Hyperinflated lungs. German Ibarra MD Objective Remarks GENERAL: This is an elderly, thin-appearing female patient, in no apparent distress. SKIN: No rashes, ecchymoses or lesions. Warm and dry. HEENT: Atraumatic. Normocephalic. Pupils equal round and reactive. Extraocular motions intact. No scleral icterus. No injection or drainage. Nose without bleeding. Airway patent. NECK: Trachea midline. No JVD. Shortened neck. CARDIOVASCULAR: Regular rate and rhythm gallops, or rubs. 3/6 systolic murmur RESPIRATORY: Clear to auscultation. Breath sounds equal bilaterally. No wheezes , rales, or rhonchi. Increase in AP diameter. GASTROINTESTINAL: Abdomen soft, diffusely tender, severe hepatomegaly noted, 8- finger length. MUSCULOSKELETAL: Extremities without clubbing, cyanosis, or edema. No joint tenderness, effusion, or edema noted. NEUROLOGICAL: Awake and alert. Cranial nerves II through XII intact. Motor and sensory grossly within normal limits. Five out of 5 muscle strength in all muscle groups. Normal speech. A/P Problem List: (1) Sepsis ICD Code: A41.9 - Sepsis, unspecified organism Status: Acute Plan: Secondary to sepsis Meet sepsis criteria (tachycardia, leukocytosis WBC 29.9) suspected source UTI. Lactic acid 1.0. UA obtained showing small amount of leukocyte esterase and presence of WBC. Urine culture pending follow. Blood cultures ordered and pending. Given Rocephin x 1 in ED. Status post 2 L NS bolus in ED. Continue scheduled Rocephin. Continue IVF. (2) UTI (urinary tract infection) ICD Code: N39.0 - Urinary tract infection, site not specified Status: Acute Plan: UA showing presence of WBC. Given IV Rocephin in ED. Will continue. Follow urine culture, pending. See above for plan. (3) ANU (acute kidney injury) ICD Code: N17.9 - Acute kidney failure, unspecified Plan: suspect secondary to UTI vs dehydration Creatinine on presentation 1.6/GFR 85. Status post 2 L NS bolus in ED. Will continue IVF. BMP reviewed today, creatinine 1.1. Monitor intake and output closely. (4) Liver mass, right lobe ICD Code: R16.0 - Hepatomegaly, not elsewhere classified Status: Acute Plan: Abdominal/Pelvis CT reviewed showing large solitary mass in the right lobe of the liver inferiorly. Marked induration of the surrounding mesentery. Reports of a 13-pound weight loss over the course of 6 weeks. Lipase normal. Will consult GI, appreciate further input and recommendations. Encourage PO intake, advance as tolerated. Zofran available PRN. IR for biopsy. PT 14/INR1.4 (5) Hypokalemia ICD Code: E87.6 - Hypokalemia Plan: Suspect secondary to dehydration vs poor intake K 2.9 on presentation. K 3.0 today. Replaced. Follow BMP. Continue cardiac telemetry, monitor for any arrhythmias. Magnesium 2.1. DVT prophylaxis: SCDs. Attending Statement The exam, history, and the medical decision-making described in the above note were completed with the assistance of the mid-level provider. I reviewed and agree with the findings presented. I attest that I had a [id number] encounter with the patient on the same day, and personally performed and documented my assessment and findings in the medical record. Seen and evaluated today Plan of care discussed with patient GENERAL: This is a well-nourished, well-developed patient, feels better today CARDIOVASCULAR: Regular rate and rhythm without murmurs, gallops, or rubs. RESPIRATORY: Increased AP diameter Clear to auscultation. Breath sounds equal bilaterally. No wheezes, rales, or rhonchi. GASTROINTESTINAL: Abdomen soft, non-tender, nondistended. Normal active bowel sounds MUSCULOSKELETAL: Extremities without clubbing, cyanosis, or edema. NEURO: Alert & Oriented x4 to person, place, time, situation. Moves all ext x4 For biopsy tomorrow And IV iron for severe iron deficiency Agree with above Problem Qualifiers (1) Sepsis: Qualified Codes: A41.9 - Sepsis, unspecified organism (2) UTI (urinary tract infection): Qualified Codes: N30.00 - Acute cystitis without hematuria Jocelyn Pineda Mar 08, 2017 10:29 Tammie Thompson MD Mar 08, 2017 13:20
[2017-03-08] MEDS ORDERED: POTASSIUM CHLORIDE 10 MEQ CONTROLLED RELEASE TAB PO ONE (11:00)
[2017-03-08] MEDS: cefTRIAXone INJ 1,000 MG in SODIUM CHLORIDE 0.9% INJ 100 ML IV SCH (14:44)
--- NOTE | 2017-03-08 15:42 | EKG ---
Date Performed: 03/07/2017 Time Performed: 16:29:37 PTAGE: 76 years EKG: SINUS TACHYCARDIA INTERMITTENT VENTRICULAR PREEXCITATION/WPW MODERATE INTRAVENTRICULAR COND UCTION DELAY ABNORMAL ECG Compared to PREVIOUS TRACING , now occasional PVCs present. PREVIOUS TRACIN06/19/2014 13.03 DOCTOR: eKvin Lal Interpretating Date/Time 03/08/2017 15:41:55
[2017-03-08] MEDS ORDERED: LORazepam 2 MG/ML VIAL IV ONE (16:00)
--- NOTE | 2017-03-08 16:54 | PD.RAD ---
Post CT Procedure Prog Note Pre Procedure Diagnosis: (1) Liver mass, right lobe Post Procedure Diagnosis: (1) Liver mass, right lobe Procedure Date: Mar 08, 2017 Supervising Radiologist: Soham Campoverde Anesthesia: Local, Analgesia Plan of Activity Patient to Unit: PACU Patient Condition: Fair See PACS Report for procedural detail/treatment Biopsy Imaging Guidance: CT Side: Right Biopsy Procedure: Liver Specimen: Core Biopsy (18 gauge) Findings: Core friable with ? mucinous coating. Soham Campoverde MD Mar 08, 2017 16:54
[2017-03-08] MEDS ORDERED: LIDOCAINE 1%/EPINEPHrine 1:100,000 SOLN 30 ML VIAL OTHER ONE (17:19)
[2017-03-08] MEDS: IRON SUCROSE INJ 100 MG in SODIUM CHLORIDE 0.9% INJ 100 ML IV SCH (18:40)
[2017-03-09] VITALS (9 sets, daily range): BP systolic 137–171; BP diastolic 69–79; PULSE 108–122; RESP 20–24; TEMP 98.4–102; O2SAT 92–98
[2017-03-09 06:25] LABS: AUTOMATED NEUTROPHIL # 10.5 TH/MM3 (1.8-7.7); BASOPHIL % 0.1 % (0.0-2.0); EOSINOPHIL % 0.3 % (0.0-4.0); HEMATOCRIT 22.5 % (35.0-46.0); LYMPHOCYTE # 0.1 TH/MM3 (1.0-4.8); MEAN CELL VOLUME 70.4 FL (80.0-100.0); MEAN CORPUSCULAR HEMOGLOBIN 22.9 PG (27.0-34.0); MEAN CORPUSCULAR HGB CONC 32.5 % (32.0-36.0); MONO % 3.2 % (0.0-8.0); NEUT % 95.4 % (16.0-70.0); PLATELET COUNT 543 TH/MM3 (150-450); RED BLOOD COUNT 3.19 MIL/MM3 (4.00-5.30); RED CELL DISTRIBUTION WIDTH 18.1 % (11.6-17.2); WHITE BLOOD COUNT 10.9 TH/MM3 (4.0-11.0)
[2017-03-09 06:35] LABS: HEMO FLAGS AUTO DIFF
[2017-03-09 06:58] LABS: ALKALINE PHOSPHATASE 135 U/L (45-117); ALT (GPT) 15 U/L (10-53); ANION GAP 11 MEQ/L (5-15); AST (GOT) 14 U/L (15-37); BLOOD UREA NITROGEN 50 MG/DL (7-18); CHLORIDE 119 MEQ/L (98-107); GLOMERULAR FILTRATION RATE 71 ML/MIN (>89); POTASSIUM 3.1 MEQ/L (3.5-5.1); SODIUM (NA) 150 MEQ/L (136-145); TOTAL BILIRUBIN ADULT 0.3 MG/DL (0.2-1.0)
[2017-03-09 07:18] LABS: KERATOCYTES 1+ (NORMAL); OVALOCYTES 1+ (NORMAL); SCAN/DIFF AUTO DIFF CONFIRMED; TARGET CELLS 1+ (NORMAL)
[2017-03-09] MEDS: RESP: ALBUTEROL 2.5 MG/IPRATROPIUM 0.5 MG NEB (SCH) NEB ×3 (07:40→19:45)
--- NOTE | 2017-03-09 08:31 | MB ---
cc: YASSINE BERGMAN M.D. DATE OF CONSULTATION 03/08/2017 DATE OF [address] Ramires[address] REASON FOR REFERRAL Liver mass and anemia. Thank you for the consultation. HISTORY OF PRESENT ILLNESS A 76-year-old lady who is known to our practice from before. She has a history of peptic ulcer disease with gastrectomy. She also has a history of a large hiatal hernia in the chest and chronic nausea, gastroparesis and delayed gastric emptying. The patient was seen in our office in the last few months for anemia and the nausea. She had an upper endoscopy which showed partial gastrectomy and some erythema at the surgical anastomosis of hernia. She had a colonoscopy which was unremarkable. The patient was doing okay but according to her daughter she is deteriorating in the last few weeks ago. She is having generalized body aches and discomfort, lack of appetite and some weight loss. Her brought her to the hospital because of the generalized weakness. She apparently was not able to eat with nausea and vomiting and lack of appetite for the last few weeks. The patient is currently lying in bed sleepy because she had a liver mass biopsied by radiology. She is arousable but for the most part sleepy. REVIEW OF SYSTEMS From the chart and from her daughter generalized body weakness and malaise. She denied any rectal bleeding but she had some diarrhea alternating with constipation. Otherwise all 12-point review of systems is negative except as in the HPI. PAST SURGICAL HISTORY 1. Gastric ulcer with partial gastrectomy. 2. Hysterectomy. PAST MEDICAL HISTORY 1. Gastroparesis. 2. Hypertension. 3. Gastric ulcer. 4. COPD. 5. Vertigo. 6. CVA. ALLERGIES No known drug allergies. MEDICATIONS Reviewed in the chart. FAMILY HISTORY Significant for stroke and breast cancer. SOCIAL HISTORY No tobacco at least for 5 years. No alcohol or drugs. PHYSICAL EXAMINATION GENERAL: The patient is arousable, sedated secondary to liver biopsy. VITAL SIGNS: Stable. HEENT: Pupils are round and reactive to light. NECK: Supple. BACK: The patient has some scoliosis. CHEST: Clear to auscultation and percussion. CARDIAC: Regular rate and rhythm with 3/6 systolic murmur. ABDOMEN: Soft, mild discomfort and tenderness, but most likely patient not complaining because of pain medication. Positive bowel sounds. NEUROLOGIC: The patient is sleepy because of medication. No range of motion abnormality or limitation. LABORATORY White count today 20.3, yesterday 29.9. Hemoglobin 8.4, platelets 592. INR 1.4. Liver function tests are okay except alkaline phosphatase of 168, albumin 1.7. Vitamin-B12 2000. Lipase was normal at 76. Iron study: Total iron-binding capacity 195 and saturation 5.7. Creatinine 1.1, on admission was 1.6. IMAGING CT scan: A large solitary mass in the right lobe of the liver. Differential includes large metastatic lesion or conceivably large septic emboli. There is also marked induration of the surrounding mesentery and intra-abdominal wall hernia. No other malignancies or mass identified. ASSESSMENT A 76-year-old lady who has a history of peptic ulcer disease status post gastrectomy. The patient also has chronic anemia. Anemia is worse in the last few weeks and she has generalized weakness and fatigue. She was found to have a UTI and liver mass, questionable infectious versus malignancy. The patient had recent upper endoscopy and colonoscopy which did not show any malignancy. RECOMMENDATIONS 1. Continue treatment with antibiotics for UTI. 2. Await liver biopsy results. 3. May feed patient as tolerated. 4. Further plan depending on the result of the biopsy and how she is doing in the hospital. MD ROXANNE Ramos/ZULY /8:44 PM /8:10 AM
--- NOTE | 2017-03-09 08:38 | HHI.GIFU ---
Subjective Remarks patient is more awake today, eating breakfast, c/o abdominal pain at site of liver Bx, still feels very weak Objective Vitals I&O Vital Signs Date Time Temp Pulse Resp B/P (MAP) Pulse Ox O2 Delivery O2 Flow Rate FiO2 03/09/17 08:00 98.5 108 24 167/79 (108) 92 03/09/17 07:42 94 21 03/09/17 00:00 99.0 115 20 171/77 (108) 95 03/08/17 21:00 94 Nasal Cannula 1.00 03/08/17 20:00 96.5 66 20 182/83 (116) 94 03/08/17 20:00 Nasal Cannula 2.00 03/08/17 18:48 20 03/08/17 18:34 96.7 112 18 144/67 (92) 94 03/08/17 16:13 18 03/08/17 14:04 97.5 108 16 148/65 (92) 96 03/08/17 10:47 Nasal Cannula 1.00 03/08/17 09:53 96.4 110 16 135/56 (82) 92 I/O 03/08/17 03/08/17 03/08/17 03/09/17 03/09/17 03/09/17 07:00 15:00 23:00 07:00 15:00 23:00 Intake Total 1034 ml 1200 ml 1460 ml Output Total 400 ml Balance 1034 ml 1200 ml 1060 ml Intake Oral 500 ml 240 ml IV Total 1034 ml 700 ml 1220 ml Output Urine Total 400 ml # Voids 6 3 8 1 # Bowel Movements 0 Laboratory Laboratory Tests Test 03/09/17 05:53 White Blood Count 10.9 Red Blood Count 3.19 Hemoglobin 7.3 Hematocrit 22.5 Mean Corpuscular Volume 70.4 Mean Corpuscular Hemoglobin 22.9 Mean Corpuscular Hemoglobin Concent 32.5 Red Cell Distribution Width 18.1 Platelet Count 543 Mean Platelet Volume 8.5 Neutrophils (%) (Auto) 95.4 Lymphocytes (%) (Auto) 1.0 Monocytes (%) (Auto) 3.2 Eosinophils (%) (Auto) 0.3 Basophils (%) (Auto) 0.1 Neutrophils # (Auto) 10.5 Lymphocytes # (Auto) 0.1 Monocytes # (Auto) 0.3 Eosinophils # (Auto) 0.0 Basophils # (Auto) 0.0 CBC Comment AUTO DIFF Differential Comment AUTO DIFF CONFIRMED Target Cells 1+ Ovalocytes 1+ Keratocytes 1+ Blood Urea Nitrogen 50 Creatinine 0.78 Random Glucose 123 Total Protein 5.6 Albumin 1.5 Calcium Level 7.7 Alkaline Phosphatase 135 Aspartate Amino Transf (AST/SGOT) 14 Alanine Aminotransferase (ALT/SGPT) 15 Total Bilirubin 0.3 Sodium Level 150 Potassium Level 3.1 Chloride Level 119 Carbon Dioxide Level 20.0 Anion Gap 11 Estimat Glomerular Filtration Rate 71 Date/Time Source Procedure Growth Status 03/07/17 19:10 Blood Peripheral Aerobic Blood Culture - Preliminary NO GROWTH IN 1 DAY Resulted 03/07/17 19:10 Blood Peripheral Anaerobic Blood Culture - Preliminary NO GROWTH IN 1 DAY Resulted 03/07/17 15:21 Urine Clean Catch Urine Culture - Preliminary Gram Negative Amado Resulted Physical Exam HEENT: Pupils round and reactive to light; normocephalic; atraumatic; no jaundice. Throat is clear. NECK: Neck is supple, no JVD, no lymphadenopathy. CHEST: Chest is clear to auscultation and percussion. CARDIAC: Regular rate and rhythm with no murmur gallop or rubs. ABDOMEN: Soft, nondistended, moderate tenderness mostly the upper abdomen; no hepatosplenomegaly; bowel sounds are present in all four quadrants. EXTREMITIES: No clubbing, cyanosis, or edema. SKIN: Normal; no rash; no jaundice. PATTERN LEASE INSPECTOR: No focal deficits; alert and oriented times three. Assessment and Plan Plan Patient is a 76-year-old lady with abdominal pain general weakness nausea, found to have a mass in the liver, this was biopsied yesterday, patient complaining of abdominal pain, she dropped her hemoglobin from 8.4-7.3 I had a discussion with Dr. Cochran who performed a liver biopsy We will plan on doing abdominal CT scan with IV contrast Await biopsy results Give 1 unit of packed RBC Artie Ham MD Mar 09, 2017 08:38
[2017-03-09] MEDS ORDERED: SODIUM CHLOR 0.9% 250 ML INJ 250 ML IV ONE (09:00)
[2017-03-09] MEDS: SODIUM CHLORIDE 0.9% FLUSH 10 ML FLUSH IV FLUSH SCH ×2 (09:00→21:03)
[2017-03-09] MEDS ORDERED: FUROSEMIDE 20 MG/2 ML VIAL IV PUSH ONE (09:00)
--- NOTE | 2017-03-09 09:01 | HHI.PR ---
Subjective Remarks Follow-up for sepsis, UTI, liver mass. Patient is somewhat lethargic. However she does not have any acute concerns. She denies any chest pain, shortness of breath, fever or chills. Objective Vitals Vital Signs Date Time Temp Pulse Resp B/P (MAP) Pulse Ox O2 Delivery O2 Flow Rate FiO2 03/09/17 08:00 98.5 108 24 167/79 (108) 92 03/09/17 07:42 94 21 03/09/17 00:00 99.0 115 20 171/77 (108) 95 03/08/17 21:00 94 Nasal Cannula 1.00 03/08/17 20:00 96.5 66 20 182/83 (116) 94 03/08/17 20:00 Nasal Cannula 2.00 03/08/17 18:48 20 03/08/17 18:34 96.7 112 18 144/67 (92) 94 03/08/17 16:13 18 03/08/17 14:04 97.5 108 16 148/65 (92) 96 03/08/17 10:47 Nasal Cannula 1.00 03/08/17 09:53 96.4 110 16 135/56 (82) 92 I/O 03/08/17 03/08/17 03/08/17 03/09/17 03/09/17 03/09/17 07:00 15:00 23:00 07:00 15:00 23:00 Intake Total 1034 ml 1200 ml 1460 ml Output Total 400 ml Balance 1034 ml 1200 ml 1060 ml Intake Oral 500 ml 240 ml IV Total 1034 ml 700 ml 1220 ml Output Urine Total 400 ml # Voids 6 3 8 1 # Bowel Movements 0 Result Diagram: 03/09/17 0553 03/09/17 0553 Imaging Last Impressions Abdomen/Pelvis CT 03/09/17 0000 Signed Impressions: Service Date/Time: Thursday, March 09, 2017 08:56 - CONCLUSION: 1. No hemorrhage observed. 2. Complex cystic and solid mass associated with the fundus of the gallbladder and right lobe of the liver worrisome for possible cholangiocarcinoma. 3. New small bilateral pleural effusions and associated atelectasis. 4. Small volume ascites is stable. 5. Colonic diverticulosis. 6. Small hiatal hernia. Eitan Jensen Jr., MD Liver Biopsy CT 03/07/17 0000 Signed Impressions: Service Date/Time: Wednesday, March 08, 2017 15:55 - CONCLUSION: 1. Uncomplicated CT guided biopsy. 2. Two biopsy samples were obtained. Both samples were somewhat friable and appear to contain a mucoid coat or white exudate. 3. Cholelithiasis. There appears to be some abnormal thickening along the anterior wall of the gallbladder. Soham Campoverde MD Chest X-Ray 03/07/17 0000 Signed Impressions: Service Date/Time: Tuesday, March 07, 2017 18:52 - CONCLUSION: Hyperinflated lungs. German Ibarra MD Objective Remarks GENERAL: Alert, somewhat lethargic SKIN: Warm and dry. HEAD: Normocephalic. EYES: No scleral icterus. No injection or drainage. NECK: Supple, trachea midline. No JVD or lymphadenopathy. CARDIOVASCULAR: Regular rate and rhythm without murmurs, gallops, or rubs. RESPIRATORY: Breath sounds equal bilaterally. No accessory muscle use. GASTROINTESTINAL: Abdomen soft, non-tender, nondistended. MUSCULOSKELETAL: No cyanosis, or edema. BACK: Nontender without obvious deformity. No CVA tenderness. Procedures CT-guided liver mass biopsy 03/08/2017. A/P Problem List: (1) Sepsis ICD Code: A41.9 - Sepsis, unspecified organism Status: Acute (2) UTI (urinary tract infection) ICD Code: N39.0 - Urinary tract infection, site not specified Status: Acute (3) ANU (acute kidney injury) ICD Code: N17.9 - Acute kidney failure, unspecified (4) Liver mass, right lobe ICD Code: R16.0 - Hepatomegaly, not elsewhere classified Status: Acute (5) Hypokalemia ICD Code: E87.6 - Hypokalemia Assessment and Plan Ms. Leon is a 76-year-old female with a history of peptic ulcer disease with gastrectomy who came to the emergency department due to generalized weakness. ED workup indicated possible UTI, sepsis. CT abdomen pelvis also indicated a large solitary mass in the right lobe of the liver inferiorly. Patient reported 13 pound weight loss over [address]-guided biopsy of the liver mass on 03/08/2017. 03/09/2017: Patient underwent liver biopsy on 03/08/2017. Her hemoglobin dropped from 8.4-->7.3. Patient also was lethargic today. Due to concern over intra-abdominal hemorrhage and after discussing with GI attending and interventional radiologist Dr. Campoverde, we obtained a STAT CT abdomen pelvis to make sure there is no intra-abdominal hemorrhage. I evaluated patient prior to CT abdomen pelvis. Patient appeared somewhat lethargic. We also ordered stat blood transfusion 1 unit and 1 unit on hold. After CT abdomen was completed, I discussed with interventional radiology again and determined that there is no active bleeding currently. We'll continue to provide supportive care including blood transfusion. I checked on again in the afternoon. Patient's daughters are in the room. Patient is currently doing little bit better according to patient's daughter who is a practicing nurse. Total critical care time spent over 45 minutes. - Sepsis (tachycardia, leukocytosis WBC 29.9, UTI) - Urinary tract infection - Patient was empirically started on ceftriaxone. - Culture growing Enterobacter and Citrobacter. Both sensitive to ciprofloxacin - We'll switch antibiotics from ceftriaxone to ciprofloxacin 400 mg IV every 12 hours. - Probable GI blood loss anemia - Hgb dropped from 9.4 --> 8.4 --> 7.3. - GI is following. - Will transfuse one unit of PRBCs and keep 1 unit on hold. - Solitary liver mass - Gallbladder mass - complex cystic and solid mass associated with the fundus of the gallbladder. - Status post biopsy by interventional radiology. - I discussed with interventional radiologist who stated that there is a soft tissue density near the gallbladder as well. - CT abdomen pelvis on 03/09/2017 indicates possible cholangiocarcinoma. - Follow biopsy results, continue ciprofloxacin 400 mg IV every 12 hours. - Hypokalemia - Hypernatremia - Potassium went from 2.9 --> 3.1. - Sodium increased from 142 --> 150. - We'll discontinue normal saline and start D5W at 84 cc/h. - Will provide KCL bolus 20mEQ X 2 today. And KCL PO 20meQ Qday. - Obtain BMP in the morning. - Acute kidney injury - Creatinine improved from 1.60 -->0.78. Full code. SCDs for now due to concern over GI bleed/anemia. Problem Qualifiers (1) Sepsis: Qualified Codes: A41.9 - Sepsis, unspecified organism (2) UTI (urinary tract infection): Qualified Codes: N30.00 - Acute cystitis without hematuria Boris Ramires 19, 2017 9:01 am
[2017-03-09] MEDS ORDERED: IOHEXOL 350 MG/ML 10 ML VIAL (for RAD DIAG) IVCONTRAST ONE (09:11)
--- NOTE | 2017-03-09 09:41 | RADRPT ---
EXAM DATE/TIME: 03/09/2017 08:56 [facility] COMPARISON: CT ABDOMEN & PELVIS W/O CONTRAST, March 07, 2017, 16:49. CT NEEDLE BIOPSY LIVER, March 08 7, 15:55. INDICATIONS : Patient complains of abdominal pain at site of liver biopsy which was performed yesterday afternoon. IV CONTRAST: 75 cc Omnipaque 350 (iohexol) IV ORAL CONTRAST: No oral contrast ingested. RADIATION DOSE: 7.41 CTDIvol (mGy) MEDICAL HISTORY : Cerebrovascular disease. Chronic obstructive pulmonary disease. Gastroparesis.Hypertension. SURGICAL HISTORY : Hysterectomy. Stomach surgery. ENCOUNTER: Subsequent ACUITY: 2 days PAIN SCALE: 7/10 LOCATION: Right abdomen TECHNIQUE: Volumetric scanning of the abdomen and pelvis was performed. Using automated exposure control and ad justment of the mA and/or kV according to patient size, radiation dose was kept as low as reasonably achievable to obtain optimal diagnostic quality images. DICOM format image data is available electro nically for review and comparison. FINDINGS: LOWER LUNGS: Small bilateral pleural effusions with associated passive atelectasis are new from the prior exam. LIVER: There is a mixed density largely cystic mass occupying much of the tip of the liver. There is soft ti ssue involving the adjacent gallbladder wall near the fundus that is contiguous with the adjacent christian er parenchyma. A small curvilinear fluid collection is seen anterior to the tip of the liver. These f indings are all stable from the prior study. No hemorrhage. Portal vein remains patent. SPLEEN: Normal size without lesion. PANCREAS: Within normal limits. KIDNEYS: Normal in size and shape. There is no mass, stone or hydronephrosis. Tiny bilateral cortical renal c ysts. These measure approximately 1 cm in size. ADRENAL GLANDS: Within normal limits. VASCULAR: Diffuse calcified plaque involving the aorta and inflow vessels. No gross aneurysmal change. BOWEL/MESENTERY: The stomach, small bowel, and colon demonstrate no acute abnormality. There is no free intraperitone al air. Scattered colonic diverticuli without acute inflammation. Small volume free fluid. ABDOMINAL WALL: There is a small ventral hernia containing omental fat high within the right upper quadrant. This is anterior to the right lobe of the liver. RETROPERITONEUM: There is no lymphadenopathy. BLADDER: No wall thickening or mass. REPRODUCTIVE: Within normal limits. INGUINAL: There is no lymphadenopathy or hernia. MUSCULOSKELETAL: Within normal limits for patient age. CONCLUSION: 1. No hemorrhage observed. 2. Complex cystic and solid mass associated with the fundus of the gallbladder and right lobe of the liver worrisome for possible cholangiocarcinoma. 3. New small bilateral pleural effusions and associated atelectasis. 4. Small volume ascites is stable. 5. Colonic diverticulosis. 6. Small hiatal hernia. Eitan Jensen Jr., MD on March 09, 2017 at 9:17 Board Certified Radiologist. This report was verified electronically.
[2017-03-09] MEDS: IRON SUCROSE INJ 100 MG in SODIUM CHLORIDE 0.9% INJ 100 ML IV SCH (10:49)
[2017-03-09] MEDS: DEXTROSE 5% IN WATE 1000ML INJ 1,000 ML IV SCH ×2 (10:50→21:04)
[2017-03-09] MEDS: cefTRIAXone INJ 1,000 MG in SODIUM CHLORIDE 0.9% INJ 100 ML IV SCH (10:50)
[2017-03-09] MEDS: ACETAMINOPHEN 325 MG TAB PO PRN ×2 (11:55→18:44)
--- NOTE | 2017-03-09 13:21 | RADRPT ---
EXAM DATE/TIME: 03/08/2017 15:55 [facility] COMPARISON: No previous studies available for comparison. INDICATIONS : Liver mass. SEDATION TIME: 30 minutes BIOPSY SITE: Right liver MEDICATION(S): 1.) 2 mg lorazepam (Ativan) IV 2.) 100 mcg fentanyl (Sublimaze) IV DEVICE(S): 1.) 18 gauge Temno core biopsy needle MEDICAL HISTORY : Cerebrovascular disease. Gastroparesis. Chronic obstructive pulmonary disease. Hypertension. SURGICAL HISTORY : Hysterectomy. Stomach surgery. ENCOUNTER: Initial ACUITY: 1 day PAIN SCORE: 0/10 LOCATION: Right abdomen A total of two core specimen(s) were obtained and sent to the laboratory for pathologic evaluation. PROCEDURE: 1. CT guided liver biopsy. 2. Conscious sedation with continuous EKG and oximetry monitoring. 3. EKG and oximetry remained stable throughout the procedure. Prior to the procedure informed consent was obtained. Any appropriate prior imaging studies were rev iewed. Using automated exposure control and adjustment of the mA and/or kV according to patient size, radiat ion dose was kept as low as reasonably achievable to obtain optimal diagnostic quality images. DICOM format image data is available electronically for review and comparison. The site was prepped in a sterile fashion. Full sterile technique was used, including cap, mask, allyn rile gloves and gown and a large sterile sheet. Hand hygiene and 2% chlorhexidine and/or betadine/al cohol prep was utilized per protocol for cutaneous antisepsis. The skin and subcutaneous tissues wer e infiltrated with local anesthetic solution. With CT guidance the previously identified target was localized. Area with heterogeneous with predomi amna low density area in the also appears to be some increased soft tissue density near the anterior wall of the gallbladder becomes contiguous with the posterior wall liver on this noncontrasted study. The patient also has gall stones. Biopsy was performed using the prescribed needle as above. First sample was very friable and appear to have a mucoid like coat. Therefore, a second biopsy was obtained more inferiorly. Adequate hemosta sis was obtained with compression at the puncture site. Follow-up CT scan reveals no hemorrhage. The patient tolerated the procedure well and there were no complications. The patient was returned to the Radiology Outpatient Unit in stable condition. CONCLUSION: 1. Uncomplicated CT guided biopsy. 2. Two biopsy samples were obtained. Both samples were somewhat friable and appear to contain a mucoi d coat or white exudate. 3. Cholelithiasis. There appears to be some abnormal thickening along the anterior wall of the gallbl adder. Soham Campoverde MD on March 09, 2017 at 13:06 Board Certified Radiologist. This report was verified electronically.
[2017-03-09] MEDS: CIPROFLOXACIN 400 MG PREMIX 200 ML IV SCH (17:44)
[2017-03-09] MEDS: POTASSIUM CHLOR 20 MEQ PREMIX 100 ML IV SCH ×2 (17:44→21:03)
[2017-03-09] MEDS: ACETAMINOPHEN 650 MG/20.3 ML UDC PO PRN (21:02)
[2017-03-09] MEDS: ENOXAPARIN SODIUM 40 MG/0.4 ML SYRINGE SQ SCH (21:03)
[2017-03-10] VITALS (8 sets, daily range): BP systolic 137–146; BP diastolic 65–75; PULSE 100–119; RESP 20–24; TEMP 97.9–100.2; O2SAT 94–97
[2017-03-10] MEDS: ACETAMINOPHEN 650 MG/20.3 ML UDC PO PRN ×3 (04:23→22:47)
[2017-03-10] MEDS: CIPROFLOXACIN 400 MG PREMIX 200 ML IV SCH ×2 (05:47→17:23)
[2017-03-10 06:00] LABS: AUTOMATED NEUTROPHIL # 11.9 TH/MM3 (1.8-7.7); BASOPHIL % 0.1 % (0.0-2.0); EOSINOPHIL # 0.1 TH/MM3 (0-0.4); EOSINOPHIL % 0.8 % (0.0-4.0); HEMATOCRIT 26.9 % (35.0-46.0); LYMPH % 1.3 % (9.0-44.0); LYMPHOCYTE # 0.2 TH/MM3 (1.0-4.8); MEAN CELL VOLUME 71.5 FL (80.0-100.0); MEAN CORPUSCULAR HEMOGLOBIN 22.5 PG (27.0-34.0); MEAN CORPUSCULAR HGB CONC 31.5 % (32.0-36.0); MONO % 4.3 % (0.0-8.0); NEUT % 93.5 % (16.0-70.0); PLATELET COUNT 492 TH/MM3 (150-450); RED BLOOD COUNT 3.77 MIL/MM3 (4.00-5.30); WHITE BLOOD COUNT 12.7 TH/MM3 (4.0-11.0)
[2017-03-10] MEDS: ONDANSETRON HCL 4 MG/2 ML VIAL IVP PRN ×3 (06:12→22:48)
[2017-03-10 06:21] LABS: HEMO FLAGS AUTO DIFF
[2017-03-10 06:41] LABS: BICARBONATE 22.2 MEQ/L (21.0-32.0)
[2017-03-10 07:18] LABS: KERATOCYTES OCC (NORMAL); OVALOCYTES 1+ (NORMAL); TARGET CELLS 1+ (NORMAL)
[2017-03-10 07:19] LABS: SCAN/DIFF AUTO DIFF CONFIRMED
[2017-03-10] MEDS: RESP: ALBUTEROL 2.5 MG/IPRATROPIUM 0.5 MG NEB (SCH) NEB ×3 (07:31→19:22)
[2017-03-10] MEDS ORDERED: POTASSIUM CHLORIDE 20 MEQ CONTROLLED RELEASE TAB PO SCH (09:00)
[2017-03-10] MEDS: POTASSIUM CHLOR 20 MEQ PREMIX 100 ML IV SCH ×4 (09:31→17:23)
[2017-03-10] MEDS: IRON SUCROSE INJ 100 MG in SODIUM CHLORIDE 0.9% INJ 100 ML IV SCH (09:31)
[2017-03-10] MEDS: SODIUM CHLORIDE 0.9% FLUSH 10 ML FLUSH IV FLUSH SCH ×2 (09:31→21:00)
[2017-03-10] MEDS: DEXTROSE 5% IN WATE 1000ML INJ 1,000 ML IV SCH (09:32)
--- NOTE | 2017-03-10 10:09 | HHI.PR ---
Subjective Remarks Follow-up for sepsis, UTI, liver mass. Patient is currently doing well. Much improved compared to yesterday. Denies any chest pain, shortness of breath, fever or chills. Objective Vitals Vital Signs Date Time Temp Pulse Resp B/P (MAP) Pulse Ox O2 Delivery O2 Flow Rate FiO2 03/10/17 07:32 96 Nasal Cannula 3.00 03/10/17 04:00 100.0 03/10/17 00:20 2.00 03/10/17 00:00 100.2 108 20 145/69 (94) 97 03/09/17 20:00 102.0 122 20 155/71 (99) 94 03/09/17 19:45 95 Nasal Cannula 2.00 03/09/17 17:03 99.9 113 20 164/74 (104) 03/09/17 14:57 Nasal Cannula 2.00 21 03/09/17 14:29 18 03/09/17 14:25 100.2 120 20 160/70 (100) 93 03/09/17 13:38 98 Nasal Cannula 2.00 03/09/17 12:00 98.4 110 20 137/69 (91) 96 I/O 03/09/17 03/09/17 03/09/17 03/10/17 03/10/17 03/10/17 07:00 15:00 23:00 07:00 15:00 23:00 Intake Total 1460 ml 30 ml 560 ml 760 ml 400 ml Output Total 400 ml 100 ml Balance 1060 ml 30 ml 560 ml 660 ml 400 ml Intake Oral 240 ml 360 ml 60 ml IV Total 1220 ml 200 ml 700 ml Packed Cells 400 ml Blood Product IV Normal Saline Flush 30 ml Output Urine Total 400 ml Emesis 100 ml # Voids 8 1 10 7 # Bowel Movements 0 Result Diagram: 03/10/1751403/10/1715 Objective Remarks GENERAL: Alert, somewhat lethargic SKIN: Warm and dry. HEAD: Normocephalic. EYES: No scleral icterus. No injection or drainage. NECK: Supple, trachea midline. No JVD or lymphadenopathy. CARDIOVASCULAR: Regular rate and rhythm without murmurs, gallops, or rubs. RESPIRATORY: Breath sounds equal bilaterally. No accessory muscle use. GASTROINTESTINAL: Abdomen soft, non-tender, nondistended. MUSCULOSKELETAL: No cyanosis, or edema. BACK: Nontender without obvious deformity. No CVA tenderness. Procedures CT-guided liver mass biopsy 03/08/2017. A/P Problem List: (1) Sepsis ICD Code: A41.9 - Sepsis, unspecified organism Status: Acute (2) UTI (urinary tract infection) ICD Code: N39.0 - Urinary tract infection, site not specified Status: Acute (3) ANU (acute kidney injury) ICD Code: N17.9 - Acute kidney failure, unspecified (4) Liver mass, right lobe ICD Code: R16.0 - Hepatomegaly, not elsewhere classified Status: Acute (5) Hypokalemia ICD Code: E87.6 - Hypokalemia Assessment and Plan Ms. Leon is a 76-year-old female with a history of peptic ulcer disease with gastrectomy who came to the emergency department due to generalized weakness. ED workup indicated possible UTI, sepsis. CT abdomen pelvis also indicated a large solitary mass in the right lobe of the liver inferiorly. Patient reported 13 pound weight loss over [address]-guided biopsy of the liver mass on 03/08/2017. 03/09/2017: Patient underwent liver biopsy on 03/08/2017. Her hemoglobin dropped from 8.4-->7.3. Patient also was lethargic today. Due to concern over intra-abdominal hemorrhage and after discussing with GI attending and interventional radiologist Dr. Campoverde, we obtained a STAT CT abdomen pelvis to make sure there is no intra-abdominal hemorrhage. I evaluated patient prior to CT abdomen pelvis. Patient appeared somewhat lethargic. We also ordered stat blood transfusion 1 unit and 1 unit on hold. After CT abdomen was completed, I discussed with interventional radiology again and determined that there is no active bleeding currently. We'll continue to provide supportive care including blood transfusion. I checked on again in the afternoon. Patient's daughters are in the room. Patient is currently doing little bit better according to patient's daughter who is a practicing nurse. Total critical care time spent over 45 minutes. - Sepsis (tachycardia, leukocytosis WBC 29.9, UTI) - Urinary tract infection - Patient was empirically started on ceftriaxone. - Culture growing Enterobacter and Citrobacter. Both sensitive to ciprofloxacin - We'll switch antibiotics from ceftriaxone to ciprofloxacin 400 mg IV every 12 hours. - Probable GI blood loss anemia - Hgb dropped from 9.4 --> 8.4 --> 7.3 --> 8.5 status post one unit PRBCs transfusion - GI is following. - Solitary liver mass - Gallbladder mass - complex cystic and solid mass associated with the fundus of the gallbladder. - Status post biopsy by interventional radiology. - I discussed with interventional radiologist who stated that there is a soft tissue density near the gallbladder as well. - CT abdomen pelvis on 03/09/2017 indicates possible cholangiocarcinoma. - Follow biopsy results, continue ciprofloxacin 400 mg IV every 12 hours. - Discussed with GI attending. We'll obtain MRCP, CA 19-9, CEA, AFP - Hypokalemia - Hypernatremia - Potassium went from 2.9 --> 3.1 --> 3.0 - Sodium increased from 142 --> 150 --> 141. - Discontinue D5 W. Continue calcium replacement with IV and by mouth - Obtain BMP in the morning. - Acute kidney injury - Creatinine improved from 1.60 -->0.78. Full code. SCDs for now due to concern over GI bleed/anemia. Problem Qualifiers (1) Sepsis: Qualified Codes: A41.9 - Sepsis, unspecified organism (2) UTI (urinary tract infection): Qualified Codes: N30.00 - Acute cystitis without hematuria Boris Ramires DO Mar 10, 2017 10:09 am
[2017-03-10] MEDS: POTASSIUM CHLORIDE 10 MEQ CONTROLLED RELEASE TAB PO SCH ×2 (15:18→22:47)
--- NOTE | 2017-03-10 15:54 | HHI.GIFU ---
Subjective Remarks Patient is a sitting at the edge of the bed, fully alert and oriented, feel weak but overall doing much better than yesterday, CT scan did not show any bleeding but questionable mass possible cholangiogram, she received 1 unit of packed RBC and her hemoglobin is 8.3, no sign of GI bleed, patient was accompanied with her Objective Vitals I&O Vital Signs Date Time Temp Pulse Resp B/P (MAP) Pulse Ox O2 Delivery O2 Flow Rate FiO2 03/10/17 12:00 98.7 107 20 143/65 (91) 95 03/10/17 09:30 94 Nasal Cannula 2.00 03/10/17 08:00 97.9 100 20 146/75 (98) 94 03/10/17 07:32 96 Nasal Cannula 3.00 03/10/17 04:00 100.0 03/10/17 00:20 2.00 03/10/17 00:00 100.2 108 20 145/69 (94) 97 03/09/17 20:00 102.0 122 20 155/71 (99) 94 03/09/17 19:45 95 Nasal Cannula 2.00 03/09/17 17:03 99.9 113 20 164/74 (104) I/O 03/09/17 03/09/17 03/09/17 03/10/17 03/10/17 03/10/17 07:00 15:00 23:00 07:00 15:00 23:00 Intake Total 1460 ml 30 ml 560 ml 760 ml 700 ml Output Total 400 ml 100 ml Balance 1060 ml 30 ml 560 ml 660 ml 700 ml Intake Oral 240 ml 360 ml 60 ml IV Total 1220 ml 200 ml 700 ml 300 ml Packed Cells 400 ml Blood Product IV Normal Saline Flush 30 ml Output Urine Total 400 ml Emesis 100 ml # Voids 8 1 10 7 # Bowel Movements 0 Laboratory Laboratory Tests Test 03/10/17 05:15 White Blood Count 12.7 Red Blood Count 3.77 Hemoglobin 8.5 Hematocrit 26.9 Mean Corpuscular Volume 71.5 Mean Corpuscular Hemoglobin 22.5 Mean Corpuscular Hemoglobin Concent 31.5 Red Cell Distribution Width 18.0 Platelet Count 492 Mean Platelet Volume 8.3 Neutrophils (%) (Auto) 93.5 Lymphocytes (%) (Auto) 1.3 Monocytes (%) (Auto) 4.3 Eosinophils (%) (Auto) 0.8 Basophils (%) (Auto) 0.1 Neutrophils # (Auto) 11.9 Lymphocytes # (Auto) 0.2 Monocytes # (Auto) 0.5 Eosinophils # (Auto) 0.1 Basophils # (Auto) 0.0 CBC Comment AUTO DIFF Differential Comment AUTO DIFF CONFIRMED Target Cells 1+ Ovalocytes 1+ Keratocytes OCC Blood Urea Nitrogen 32 Creatinine 0.77 Random Glucose 140 Calcium Level 7.5 Sodium Level 141 Potassium Level 3.0 Chloride Level 109 Carbon Dioxide Level 22.2 Anion Gap 10 Estimat Glomerular Filtration Rate 73 Date/Time Source Procedure Growth Status 03/07/17 19:10 Blood Peripheral Aerobic Blood Culture - Preliminary NO GROWTH IN 3 DAYS Resulted 03/07/17 19:10 Blood Peripheral Anaerobic Blood Culture - Preliminary NO GROWTH IN 3 DAYS Resulted 03/07/17 15:21 Urine Clean Catch Urine Culture - Final Enterobacter Cloacae Citrobacter Freundii Complete Physical Exam HEENT: Pupils round and reactive to light; normocephalic; atraumatic; no jaundice. Throat is clear. NECK: Neck is supple, no JVD, no lymphadenopathy. CHEST: Chest is clear to auscultation and percussion. CARDIAC: Regular rate and rhythm with no murmur gallop or rubs. ABDOMEN: Soft, nondistended, moderate tenderness mostly the upper abdomen; no hepatosplenomegaly; bowel sounds are present in all four quadrants. EXTREMITIES: No clubbing, cyanosis, or edema. SKIN: Normal; no rash; no jaundice. DIRECTOR RISK: No focal deficits; alert and oriented times three. Assessment and Plan Plan Patient is a 76-year-old lady with abdominal pain general weakness nausea, found to have a mass in the liver, this was biopsied yesterday, patient complaining of abdominal pain, she dropped her hemoglobin from 8.4-7.3 I had a discussion with Dr. Cochran who performed a liver biopsy 03/10/2017, no sign of bleeding on CT scan but there is possible mass could be cholangiocarcinoma, we will obtain tumor markers CA 19-9, alpha-fetoprotein, CEA , and MRCP for further evaluation of the biliary tree, patient could have infection on top of the mass because of obstruction, I discussed this with the family and they are aware Await biopsy results MRCP Tumor markers Artie Ham MD Mar 10, 2017 15:54
[2017-03-10] MEDS: ENOXAPARIN SODIUM 40 MG/0.4 ML SYRINGE SQ SCH (20:11)
[2017-03-10] MEDS ORDERED: diphenhydrAMINE HCL 25 MG CAP PO ONE (22:30)
[2017-03-11] VITALS: BP 130/62; PULSE 110; RESP 20; TEMP 98.9; O2SAT 95
[2017-03-11] MEDS: CIPROFLOXACIN 400 MG PREMIX 200 ML IV SCH ×2 (05:07→17:41)
[2017-03-11] MEDS: POTASSIUM CHLORIDE 10 MEQ CONTROLLED RELEASE TAB PO SCH ×3 (05:07→21:12)
[2017-03-11 05:44] LABS: BICARBONATE 22.3 MEQ/L (21.0-32.0); POTASSIUM 4.1 MEQ/L (3.5-5.1)
[2017-03-11 07:29] VITALS: O2SAT 97
[2017-03-11] MEDS: RESP: ALBUTEROL 2.5 MG/IPRATROPIUM 0.5 MG NEB (SCH) NEB ×3 (07:29→19:26)
[2017-03-11 08:00] VITALS: BP 121/77; PULSE 120; RESP 32; TEMP 98.3; O2SAT 98
[2017-03-11] MEDS: SODIUM CHLORIDE 0.9% FLUSH 10 ML FLUSH IV FLUSH SCH ×2 (08:07→21:13)
[2017-03-11] MEDS: PROMETHAZINE INJ 25 MG/ML VIAL IM PRN ×2 (09:05→21:18)
[2017-03-11] MEDS ORDERED: GADODIAMIDE PF 287 MG/ML 10 ML VIAL (for RAD MRI) IVCONTRAST ONE (10:29)
--- NOTE | 2017-03-11 10:50 | RADRPT ---
EXAM DATE/TIME: 03/11/2017 09:43 [facility] COMPARISON: CT ABDOMEN & PELVIS W CONTRAST, March 09, 2017, 8:56. INDICATIONS : Mass. Gallbladder mass with nausea and vomiting. CONTRAST: 10 cc Omniscan (gadodiamide) IV MEDICAL HISTORY : Hypertension. SURGICAL HISTORY : Hysterectomy. Stomach rerouting. ENCOUNTER: Initial ACUITY: 2 day PAIN SCORE: 7/10 LOCATION: Right upper quadrant TECHNIQUE: Multiplanar, multisequence magnetic resonance imaging of the abdomen was performed. High-resolution 3D dataset was utilized to reconstruct maximum-intensity projection (MIP) images. FINDINGS: This examination is exceedingly limited by breathing motion artifact. This is most pronounced involvi ng the postcontrast images. This significantly limits the diagnostic utility of this study. A complex cystic mass is seen involving segment 5 of the liver. This mass measures 7.6 x 7.0 x 6.3 cm . Large cystic components are seen. The mass abuts the gallbladder fossa. There is soft tissue thicke [place] involving the gallbladder wall abutting this area of the mass. Small gallstones layering within the gallbladder. Small bilateral pleural effusions. A ventral hernia seen involving the right upper q uadrant. This contains omental fat. No appreciable intrahepatic or extrahepatic ductal dilatation obs erved. Small bilateral cortical renal cysts are noted. A scoliotic and degenerative spine is seen. CONCLUSION: 1. Significantly limited study due to breathing motion artifact. 2. Complex cystic mass involving segment 5 of the liver with suspected involvement of the wall the ga llbladder concerning for possible cholangiocarcinoma. No appreciable intrahepatic or extra hepatic bi liary dilatation observed. 3. Small bilateral pleural effusions. Eitan Jensen Jr., MD on March 11, 2017 at 10:40 Board Certified Radiologist. This report was verified electronically.
[2017-03-11 12:00] VITALS: BP 161/88; PULSE 92; RESP 20; TEMP 98.8; O2SAT 98
--- NOTE | 2017-03-11 12:24 | HHI.PR ---
Subjective Remarks Follow-up for sepsis, UTI, liver mass. Patient is more alert today. She has no acute concerns. Family members at bedside. No fever no chills. Patient inquires about her biopsy results. Objective Vitals Vital Signs Date Time Temp Pulse Resp B/P (MAP) Pulse Ox O2 Delivery O2 Flow Rate FiO2 03/11/17 08:00 98.3 120 32 121/77 (92) 98 03/11/17 07:29 97 Nasal Cannula 2.00 03/11/17 00:00 98.9 110 20 130/62 (84) 95 03/10/17 20:00 95 Nasal Cannula 2.00 03/10/17 20:00 99.0 113 24 138/65 (89) 96 03/10/17 19:22 95 Nasal Cannula 2.00 03/10/17 16:00 99.0 119 20 137/65 (89) 96 I/O 03/10/17 03/10/17 03/10/17 03/11/17 03/11/17 03/11/17 07:00 15:00 23:00 07:00 15:00 23:00 Intake Total 760 ml 700 ml 625 ml 540 ml Output Total 100 ml 1150 ml Balance 660 ml 700 ml -525 ml 540 ml Intake Oral 60 ml 240 ml IV Total 700 ml 300 ml 625 ml 300 ml Packed Cells 400 ml Output Urine Total 1150 ml Emesis 100 ml # Voids 7 9 5 # Bowel Movements 0 0 1 Result Diagram: 03/10/17 0515 03/11/17 0455 Imaging Last Impressions Cholangiopancreatography MRI 03/11/17 0000 Signed Impressions: Service Date/Time: February 09:43 - CONCLUSION: 1. Significantly limited study due to breathing motion artifact. 2. Complex cystic mass involving segment 5 of the liver with suspected involvement of the wall the gallbladder concerning for possible cholangiocarcinoma. No appreciable intrahepatic or extra hepatic biliary dilatation observed. 3. Small bilateral pleural effusions. Eitan Jensen Jr., MD Abdomen/Pelvis CT 03/09/17 0000 Signed Impressions: Service Date/Time: Thursday, March 09, 2017 08:56 - CONCLUSION: 1. No hemorrhage observed. 2. Complex cystic and solid mass associated with the fundus of the gallbladder and right lobe of the liver worrisome for possible cholangiocarcinoma. 3. New small bilateral pleural effusions and associated atelectasis. 4. Small volume ascites is stable. 5. Colonic diverticulosis. 6. Small hiatal hernia. Eitan Jensen Jr., MD Liver Biopsy CT 03/07/17 0000 Signed Impressions: Service Date/Time: Wednesday, March 08, 2017 15:55 - CONCLUSION: 1. Uncomplicated CT guided biopsy. 2. Two biopsy samples were obtained. Both samples were somewhat friable and appear to contain a mucoid coat or white exudate. 3. Cholelithiasis. There appears to be some abnormal thickening along the anterior wall of the gallbladder. Soham Campoverde MD Chest X-Ray 03/07/17 0000 Signed Impressions: Service Date/Time: Tuesday, March 07, 2017 18:52 - CONCLUSION: Hyperinflated lungs. German Ibarra MD Objective Remarks GENERAL: Alert, somewhat lethargic SKIN: Warm and dry. HEAD: Normocephalic. EYES: No scleral icterus. No injection or drainage. NECK: Supple, trachea midline. No JVD or lymphadenopathy. CARDIOVASCULAR: Regular rate and rhythm without murmurs, gallops, or rubs. RESPIRATORY: Breath sounds equal bilaterally. No accessory muscle use. GASTROINTESTINAL: Abdomen soft, non-tender, nondistended. MUSCULOSKELETAL: No cyanosis, or edema. BACK: Nontender without obvious deformity. No CVA tenderness. Procedures CT-guided liver mass biopsy 03/08/2017. A/P Problem List: (1) Sepsis ICD Code: A41.9 - Sepsis, unspecified organism Status: Acute (2) UTI (urinary tract infection) ICD Code: N39.0 - Urinary tract infection, site not specified Status: Acute (3) ANU (acute kidney injury) ICD Code: N17.9 - Acute kidney failure, unspecified (4) Liver mass, right lobe ICD Code: R16.0 - Hepatomegaly, not elsewhere classified Status: Acute (5) Hypokalemia ICD Code: E87.6 - Hypokalemia Assessment and Plan Ms. Leon is a 76-year-old female with a history of peptic ulcer disease with gastrectomy who came to the emergency department due to generalized weakness. ED workup indicated possible UTI, sepsis. CT abdomen pelvis also indicated a large solitary mass in the right lobe of the liver inferiorly. Patient reported 13 pound weight loss over [address]-guided biopsy of the liver mass on 03/08/2017. - Sepsis (tachycardia, leukocytosis WBC 29.9, UTI) - Urinary tract infection - Patient was empirically started on ceftriaxone. - Culture growing Enterobacter and Citrobacter. Both sensitive to ciprofloxacin - We'll continue ciprofloxacin 400 mg IV every 12 hours. - Probable GI blood loss anemia - Hgb dropped from 9.4 --> 8.4 --> 7.3 --> 8.5 status post one unit PRBCs transfusion - GI is following. 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 - I discussed with interventional radiologist who stated that there is a soft tissue density near the gallbladder as well. - CT abdomen pelvis on 03/09/2017 indicates possible cholangiocarcinoma. - Follow biopsy results, continue ciprofloxacin 400 mg IV every 12 hours. - MRCP suggestive of cholangiocarcinoma. CA 19-9, CEA elevated. AFP not elevated. - Per GI note, pathologist indicated biopsy indicates malignant tissue. - Medical oncology consulted. - Hypokalemia - Hypernatremia - Potassium went from 2.9 --> 3.1 --> 3.0 --> 4.1. - Sodium within normal range now. - Acute kidney injury - Creatinine improved from 1.60 -->0.63. - Anxiety - will start Clonazepam 0.5mg Q8hrs PRN Full code. SCDs for now due to concern over GI bleed/anemia. Discharge plan: Probable discharge after Oncology evaluation. Further care can be continued in the outpatient setting. Problem Qualifiers (1) Sepsis: Qualified Codes: A41.9 - Sepsis, unspecified organism (2) UTI (urinary tract infection): Qualified Codes: N30.00 - Acute cystitis without hematuria Boris Ramires DO Mar 11, 2017 12:24 pm
[2017-03-11] MEDS: ACETAMINOPHEN 325 MG TAB PO PRN (12:46)
[2017-03-11] MEDS: busPIRone HCL 10 MG TAB PO PRN (12:46)
--- NOTE | 2017-03-11 13:38 | HHI.GIFU ---
Subjective Remarks Patient is walking in the room, still complaining of nausea, less abdominal pain mild discomfort, Gen. weak but overall improved since yesterday Objective Vitals I&O Vital Signs Date Time Temp Pulse Resp B/P (MAP) Pulse Ox O2 Delivery O2 Flow Rate FiO2 03/11/17 12:00 98.8 92 20 161/88 (112) 98 03/11/17 08:00 98.3 120 32 121/77 (92) 98 03/11/17 07:29 97 Nasal Cannula 2.00 03/11/17 00:00 98.9 110 20 130/62 (84) 95 03/10/17 20:00 95 Nasal Cannula 2.00 03/10/17 20:00 99.0 113 24 138/65 (89) 96 03/10/17 19:22 95 Nasal Cannula 2.00 03/10/17 16:00 99.0 119 20 137/65 (89) 96 I/O 03/10/17 03/10/17 03/10/17 03/11/17 03/11/17 03/11/17 07:00 15:00 23:00 07:00 15:00 23:00 Intake Total 760 ml 700 ml 625 ml 540 ml Output Total 100 ml 1150 ml Balance 660 ml 700 ml -525 ml 540 ml Intake Oral 60 ml 240 ml IV Total 700 ml 300 ml 625 ml 300 ml Packed Cells 400 ml Output Urine Total 1150 ml Emesis 100 ml # Voids 7 9 5 # Bowel Movements 0 0 1 Laboratory Laboratory Tests Test 03/10/17 18:07 03/11/17 04:55 Tumor Marker Alpha Fetoprotein 2.5 Carcinoembryonic Antigen 6.8 CA 19-9 Antigen 181.3 Blood Urea Nitrogen 30 Creatinine 0.63 Random Glucose 105 Calcium Level 7.7 Sodium Level 138 Potassium Level 4.1 Chloride Level 107 Carbon Dioxide Level 22.3 Anion Gap 9 Estimat Glomerular Filtration Rate 91 Date/Time Source Procedure Growth Status 03/07/17 19:10 Blood Peripheral Aerobic Blood Culture - Preliminary NO GROWTH IN 4 DAYS Resulted 03/07/17 19:10 Blood Peripheral Anaerobic Blood Culture - Preliminary NO GROWTH IN 4 DAYS Resulted 03/07/17 15:21 Urine Clean Catch Urine Culture - Final Enterobacter Cloacae Citrobacter Freundii Complete Physical Exam HEENT: Pupils round and reactive to light; normocephalic; atraumatic; no jaundice. Throat is clear. NECK: Neck is supple, no JVD, no lymphadenopathy. CHEST: Chest is clear to auscultation and percussion. CARDIAC: Regular rate and rhythm with no murmur gallop or rubs. ABDOMEN: Soft, nondistended, mild tenderness mostly the upper abdomen; no hepatosplenomegaly; bowel sounds are present in all four quadrants. EXTREMITIES: No clubbing, cyanosis, or edema. SKIN: Normal; no rash; no jaundice. TECHNICAL SERVICES REP: No focal deficits; alert and oriented times three. Assessment and Plan Plan Patient is a 76-year-old lady with abdominal pain general weakness nausea, found to have a mass in the liver, this was biopsied yesterday, patient complaining of abdominal pain, she dropped her hemoglobin from 8.4-7.3 I had a discussion with Dr. Cochran who performed a liver biopsy 03/10/2017, no sign of bleeding on CT scan but there is possible mass could be cholangiocarcinoma, we will obtain tumor markers CA 19-9, alpha-fetoprotein, CEA , and MRCP for further evaluation of the biliary tree, patient could have infection on top of the mass because of obstruction, I discussed this with the family and they are aware 03/11/2017, no active bleeding slightly doing better, I had a discussion with the pathologist regarding the biopsy results, it is malignant this contains are consistent with upper GI tract could be from the pancreas or the biliary tree, doesn't seem to be from the colon or lungs, I had a long discussion with the family and the patient, MRCP was suboptimal but confirmed the presence of the mass Tumor markers mildly elevated consistent with cancer Oncology consult Depending on the current oncology consult consider surgical consult if it's felt to be from the gallbladder Further plan depends on the oncology recommendation Artie Ham MD Mar 11, 2017 13:38
[2017-03-11] MEDS: clonazePAM 0.5 MG TAB PO PRN (13:57)
[2017-03-11 19:26] VITALS: O2SAT 95
[2017-03-11 20:00] VITALS: BP 124/56; PULSE 118; RESP 20; TEMP 97.3; O2SAT 95
[2017-03-11] MEDS: ENOXAPARIN SODIUM 40 MG/0.4 ML SYRINGE SQ SCH (21:13)
[2017-03-11] MEDS: PANTOPRAZOLE SODIUM 40 MG VIAL IV PUSH SCH (23:39)
[2017-03-12] VITALS (7 sets, daily range): BP systolic 116–163; BP diastolic 66–81; PULSE 88–111; RESP 18–20; TEMP 96.1–98.9; O2SAT 95–99
[2017-03-12] MEDS: CIPROFLOXACIN 400 MG PREMIX 200 ML IV SCH (05:58)
[2017-03-12] MEDS: POTASSIUM CHLORIDE 10 MEQ CONTROLLED RELEASE TAB PO SCH ×3 (05:59→21:16)
[2017-03-12 06:18] LABS: AUTOMATED NEUTROPHIL # 10.5 TH/MM3 (1.8-7.7); EOSINOPHIL # 0.1 TH/MM3 (0-0.4); EOSINOPHIL % 0.5 % (0.0-4.0); HEMATOCRIT 26.3 % (35.0-46.0); LYMPH % 1.7 % (9.0-44.0); LYMPHOCYTE # 0.2 TH/MM3 (1.0-4.8); MEAN CELL VOLUME 72.2 FL (80.0-100.0); MEAN CORPUSCULAR HEMOGLOBIN 22.8 PG (27.0-34.0); MEAN CORPUSCULAR HGB CONC 31.6 % (32.0-36.0); MONO % 3.5 % (0.0-8.0); NEUT % 94.3 % (16.0-70.0); PLATELET COUNT 441 TH/MM3 (150-450); RED BLOOD COUNT 3.65 MIL/MM3 (4.00-5.30); WHITE BLOOD COUNT 11.2 TH/MM3 (4.0-11.0)
[2017-03-12 06:19] LABS: HEMO FLAGS AUTO DIFF
[2017-03-12 07:03] LABS: INDIRECT BILIRUBIN 0.2 MG/DL (0.0-0.8); TOTAL BILIRUBIN ADULT 0.4 MG/DL (0.2-1.0)
[2017-03-12 07:34] LABS: KERATOCYTES OCC (NORMAL); OVALOCYTES 1+ (NORMAL); SCAN/DIFF AUTO DIFF CONFIRMED; TARGET CELLS 1+ (NORMAL)
[2017-03-12] MEDS: PANTOPRAZOLE SODIUM 40 MG VIAL IV PUSH SCH ×2 (08:43→21:15)
[2017-03-12] MEDS: PROMETHAZINE INJ 25 MG/ML VIAL IM PRN (08:44)
[2017-03-12] MEDS: clonazePAM 0.5 MG TAB PO PRN (08:44)
[2017-03-12] MEDS: busPIRone HCL 10 MG TAB PO PRN (08:44)
[2017-03-12] MEDS: SODIUM CHLORIDE 0.9% FLUSH 10 ML FLUSH IV FLUSH SCH ×2 (08:48→21:15)
--- NOTE | 2017-03-12 09:31 | RADRPT ---
EXAM DATE/TIME: 03/12/2017 09:00 [facility] COMPARISON: CT ABDOMEN & PELVIS W CONTRAST, March 09, 2017, 8:56. INDICATIONS : Liver mass. Evaluate for metastatic disease. RADIATION DOSE: 10.21 CTDIvol (mGy) MEDICAL HISTORY : Chronic obstructive pulmonary disease. Gastroesophageal reflux disease. Cerebrovascular disease. Myoc ardial infarction. Hypertension. SURGICAL HISTORY : Hysterectomy. ENCOUNTER: Initial ACUITY: 1 day PAIN SCALE: 0/10 LOCATION: Bilateral chest TECHNIQUE: Volumetric scanning of the chest was performed. Using automated exposure control and adjustment of t he mA and/or kV according to patient size, radiation dose was kept as low as reasonably achievable to obtain optimal diagnostic quality images. DICOM format image data is available electronically for r eview and comparison. Follow-up recommendations for detected pulmonary nodules are based at a minimum on nodule size and pa tient risk factors according to Fleischner Society Guidelines. FINDINGS: LUNGS: Moderate upper lobe predominant centrilobular emphysema. Punctate densely calcified nodules in the up per lobes consistent with granulomas. The largest nodule measures 3 mm. Mild groundglass opacities at the lung bases with mild scarring in the lingula and right middle lobe inferiorly. Mild biapical sca rring. Subpleural primarily linear opacities in the posterior superior segments of the lower lobes bi laterally likely reflect focal scarring/atelectasis. PLEURAE: Small to moderate bilateral pleural effusions. These appear simple in density. MEDIASTINUM: Mild coronary calcifications. Trace anterior pericardial effusion. Heart is otherwise unremarkable. N o significant mediastinal adenopathy. The esophagus is diffusely dilated and fluid-filled. There is a small hiatal hernia. AXILLAE: Within normal limits. No lymphadenopathy. MUSCULOSKELETAL: No definitive focal lytic or blastic bony lesions. MISCELLANEOUS: The visualized upper abdominal organs demonstrate no interval change. CONCLUSION: 1. No definitive evidence for metastatic disease to the chest. 2. Moderate upper lobe predominant centrilobular emphysema with evidence for prior granulomatous dise ase. 3. Small to moderate simple appearing bilateral pleural effusions. 4. Trace anterior pericardial effusion. 5. Coronary artery calcifications. 6. Small hiatal hernia with diffusely dilated fluid filled esophagus similar to prior exams. Akhil Temple MD on March 12, 2017 at 9:21 Board Certified Radiologist. This report was verified electronically.
[2017-03-12] MEDS ORDERED: GETGO ROLLING W1 MI1 (10:27)
--- NOTE | 2017-03-12 10:29 | HHI.FF ---
Face to Face Verification Diagnosis: (1) Adenosquamous carcinoma (2) Sepsis (3) UTI (urinary tract infection) Physical Therapy Order: Evaluate and Treat, Improve ambulation, Strength and gait training Home Health Nursing Order: Medical education Signs/symptoms of disease process Nursing assessment with vital signs I have seen patient Rhea Leon on 03/12/17. My clinical findings support the need for the requested home health care services because: Deconditioned w/ increased weakness I certify that my clinical findings support that this patient is homebound because: Unsteady gait/balance Bishnu Bennett Mar 12, 2017 10:29
[2017-03-12] MEDS ORDERED: COMMODE 3-IN-11 MIS (11:40)
--- NOTE | 2017-03-12 11:41 | HHI.FF ---
Face to Face Verification Diagnosis: (1) Liver mass, right lobe (2) Adenosquamous carcinoma (3) Hypokalemia Physical Therapy Order: Evaluate and Treat, Improve ambulation, Strength and gait training Home Health Nursing Order: Medical education Signs/symptoms of disease process Oxygen administration education Nursing assessment with vital signs Home Health Aide Order: To Assist In: Bathing and personal care, software team leader and meal prep I have seen patient Rhea Leon on 03/12/17. My clinical findings support the need for the requested home health care services because: Ltd mobility - disease progression Patient has SOB Deconditioned w/ increased weakness Limited ability to care for self Need for psychosocial assistance Impaired cognition/judgement High risk of falls Infection w/ risk of complications I certify that my clinical findings support that this patient is homebound because: Impaired cognitive ability/safety Hx COPD- exertion dyspnea/weakness Unsteady gait/balance Unsafe to leave home unassisted Need for psychosocial assistance [id number] bed/chair Unable to use public transportation Boris Ramires DO Mar 12, 2017 11:41 am
[2017-03-12] MEDS ORDERED: PROCHLORPERAZINE INJ 10 MG/2 ML VIAL IV PUSH PRN (11:45)
[2017-03-12] MEDS: ENOXAPARIN SODIUM 40 MG/0.4 ML SYRINGE SQ SCH (21:15)
[2017-03-13] VITALS: BP 172/84; PULSE 112; RESP 20; TEMP 98.2; O2SAT 97
[2017-03-13] MEDS ORDERED: ENALAPRILAT 1.25 MG/ML VIAL IV PUSH ONE (00:30)
[2017-03-13] MEDS ORDERED: LOPERAMIDE HCL SOLN 2 MG/10 ML UDC PO ONE (01:45)
[2017-03-13] MEDS: POTASSIUM CHLORIDE 10 MEQ CONTROLLED RELEASE TAB PO SCH ×2 (06:12→15:06)
[2017-03-13 08:00] VITALS: BP 145/70; PULSE 102; RESP 24; TEMP 96.1; O2SAT 97
[2017-03-13 08:30] VITALS: O2SAT 97
[2017-03-13] MEDS: SODIUM CHLORIDE 0.9% FLUSH 10 ML FLUSH IV FLUSH SCH (08:46)
[2017-03-13 12:00] VITALS: BP 161/71; PULSE 100; RESP 20; TEMP 96; O2SAT 97
[2017-03-13] MEDS: clonazePAM 0.5 MG TAB PO PRN (12:33)
[2017-03-13] MEDS: PROMETHAZINE INJ 25 MG/ML VIAL IM PRN (12:33)
[2017-03-13] MEDS ORDERED: CLON.5 PO (12:45)
[2017-03-13] MEDS ORDERED: PANT40TA3 PO (12:45)
[2017-03-13] MEDS ORDERED: ZOFR4TAB3 SL (12:45)
[2017-03-13] MEDS ORDERED: TRAM50TA PO (12:45)
--- NOTE | 2017-03-13 12:50 | HHI.PR ---
Subjective Remarks Late entry for 03/12/2017 Follow-up for sepsis, UTI, liver mass. Patient is doing well. No fever, chills. Has some nausea. Family at bedside. Objective Vitals Vital Signs Date Time Temp Pulse Resp B/P (MAP) Pulse Ox O2 Delivery O2 Flow Rate FiO2 03/13/17 12:00 96.0 100 20 161/71 (101) 97 03/13/17 08:30 97 Nasal Cannula 2.00 03/13/17 08:00 96.1 102 24 145/70 (95) 97 03/13/17 00:00 98.2 112 20 172/84 (113) 97 03/12/17 20:31 95 Nasal Cannula 2.00 03/12/17 20:00 98.9 88 20 160/76 (104) 99 03/12/17 20:00 Nasal Cannula 2.00 03/12/17 16:00 97.6 110 18 140/69 (92) 98 I/O 03/12/17 03/12/17 03/12/17 03/13/17 03/13/17 03/13/17 06:59 14:59 22:59 06:59 14:59 22:59 Intake Total 120 ml 600 ml 240 ml Balance 120 ml 600 ml 240 ml Intake Oral 120 ml 600 ml 240 ml # Voids 6 4 0 # Bowel Movements 2 1 0 Result Diagram: 03/12/17 0555 03/11/17 0455 Objective Remarks GENERAL: Alert, somewhat lethargic SKIN: Warm and dry. HEAD: Normocephalic. EYES: No scleral icterus. No injection or drainage. NECK: Supple, trachea midline. No JVD or lymphadenopathy. CARDIOVASCULAR: Regular rate and rhythm without murmurs, gallops, or rubs. RESPIRATORY: Breath sounds equal bilaterally. No accessory muscle use. GASTROINTESTINAL: Abdomen soft, non-tender, nondistended. MUSCULOSKELETAL: No cyanosis, or edema. BACK: Nontender without obvious deformity. No CVA tenderness. Procedures CT-guided liver mass biopsy 03/08/2017. A/P Problem List: (1) Sepsis ICD Code: A41.9 - Sepsis, unspecified organism Status: Acute (2) UTI (urinary tract infection) ICD Code: N39.0 - Urinary tract infection, site not specified Status: Acute (3) ANU (acute kidney injury) ICD Code: N17.9 - Acute kidney failure, unspecified (4) Liver mass, right lobe ICD Code: R16.0 - Hepatomegaly, not elsewhere classified Status: Acute (5) Hypokalemia ICD Code: E87.6 - Hypokalemia Assessment and Plan Ms. Leon is a 76-year-old female with a history of peptic ulcer disease with gastrectomy who came to the emergency department due to generalized weakness. ED workup indicated possible UTI, sepsis. CT abdomen pelvis also indicated a large solitary mass in the right lobe of the liver inferiorly. Patient reported 13 pound weight loss over [address]-guided biopsy of the liver mass on 03/08/2017. - Sepsis (tachycardia, leukocytosis WBC 29.9, UTI) - Urinary tract infection - Patient was empirically started on ceftriaxone. - Culture growing Enterobacter and Citrobacter. Both sensitive to ciprofloxacin - We discontinued abx. She has had adequate treatment. - Probable GI blood loss anemia - Hgb dropped from 9.4 --> 8.4 --> 7.3 --> 8.5 status post one unit PRBCs transfusion - GI is following. 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 - I discussed with interventional radiologist who stated that there is a soft tissue density near the gallbladder as well. - CT abdomen pelvis on 03/09/2017 indicates possible cholangiocarcinoma. - Follow biopsy results, continue ciprofloxacin 400 mg IV every 12 hours. - MRCP suggestive of cholangiocarcinoma. CA 19-9, CEA elevated. AFP not elevated. - Per GI note, pathologist indicated biopsy indicates malignant tissue. - Medical oncology held multiple discussion with family. Oncology will follow in the outpatient setting. - Hypokalemia - Hypernatremia - Potassium went from 2.9 --> 3.1 --> 3.0 --> 4.1. - Sodium within normal range now. - Acute kidney injury - Creatinine improved from 1.60 -->0.63. - Anxiety - Continue Clonazepam 0.5mg Q8hrs PRN Full code. SCDs for now due to concern over GI bleed/anemia. Discharge plan: Likely discharge on 03/13/2017. Problem Qualifiers (1) Sepsis: Qualified Codes: A41.9 - Sepsis, unspecified organism (2) UTI (urinary tract infection): Qualified Codes: N30.00 - Acute cystitis without hematuria Boris Ramires DO Mar 13, 2017 12:50 pm
--- NOTE | 2017-03-13 12:51 | HHI.DS ---
Discharge Summary Admission Date Mar 07, 2017 at 6:12 pm Discharge Date: Mar 13, 2017 Admitting Diagnosis Sepsis, UTI, dehydration, liver mass, hypokalemia (1) Sepsis ICD Code: A41.9 - Sepsis, unspecified organism Status: Acute (2) UTI (urinary tract infection) ICD Code: N39.0 - Urinary tract infection, site not specified Status: Acute (3) ANU (acute kidney injury) ICD Code: N17.9 - Acute kidney failure, unspecified (4) Liver mass, right lobe ICD Code: R16.0 - Hepatomegaly, not elsewhere classified Status: Acute (5) Hypokalemia ICD Code: E87.6 - Hypokalemia Procedures CT-guided liver mass biopsy 03/08/2017. Brief History - From Admission Patient is a 76-year-old female who came to the emergency room complaining of weakness for 2-3 months worsening over the last forty-eight hours. Her finally convinced her to come to the emergency room. Here she has been tachycardic and complaining of pain "all over ". Patient says that she has been followed by multiple doctors for multiple nonspecific complaints including neurology for dizziness, gastroenterology for gastric ulcers and bleeding in the past. At this time she is found to have urinary tract infection by the ER physician. She is also quite dehydrated with electrolyte disturbances. A CT of the abdomen was done and does show a large hepatic mass which has previously been unknown to the patient. She does report a 13 pound weight loss in the last six weeks. She has been unable to eat and had associated nausea and vomiting. She has a history of a hiatal hernia but that has not been a problem recently. She also says she has gastroparesis. She reports urinary frequency and increased fatigue. She notes no specific abdominal pain but does have intermittent diarrhea and constipation without any evidence of upper or lower GI bleeding. The diffuse pain is intermittent and worse with movement. It appears to be musculoskeletal on exam. There are no specific relieving factors for her moderate to severe diffuse pain. The patient has been admitted to the hospital with signs and symptoms of sepsis related to apparent urinary tract infection. She also appears quite volume contracted and will require aggressive intravenous hydration. For these reasons the patient has been admitted to the hospital. Discussed with patient, MAIRA Andrew and spouse at bedside. CBC/BMP: 03/12/17 0555 03/11/17 0455 Significant Findings Laboratory Tests Test 03/10/17 18:07 03/11/17 04:55 03/12/17 05:55 03/13/17 09:30 Carcinoembryonic Antigen 6.8 NG/ML (0.2-5.0) CA 19-9 Antigen 181.3 U/ML (0.0-35.0) Blood Urea Nitrogen 30 MG/DL (7-18) Calcium Level 7.7 MG/DL (8.5-10.1) White Blood Count 11.2 TH/MM3 (4.0-11.0) Red Blood Count 3.65 MIL/MM3 (4.00-5.30) Hemoglobin 8.3 GM/DL (11.6-15.3) Hematocrit 26.3 % (35.0-46.0) Mean Corpuscular Volume 72.2 FL (80.0-100.0) Mean Corpuscular Hemoglobin 22.8 PG (27.0-34.0) Mean Corpuscular Hemoglobin Concent 31.6 % (32.0-36.0) Red Cell Distribution Width 18.0 % (11.6-17.2) Neutrophils (%) (Auto) 94.3 % (16.0-70.0) Lymphocytes (%) (Auto) 1.7 % (9.0-44.0) Neutrophils # (Auto) 10.5 TH/MM3 (1.8-7.7) Lymphocytes # (Auto) 0.2 TH/MM3 (1.0-4.8) Target Cells 1+ (NORMAL) Ovalocytes 1+ (NORMAL) Keratocytes OCC (NORMAL) Total Protein 5.3 GM/DL (6.4-8.2) Albumin 1.6 GM/DL (3.4-5.0) PE at Discharge GENERAL: Alert, somewhat lethargic SKIN: Warm and dry. HEAD: Normocephalic. EYES: No scleral icterus. No injection or drainage. NECK: Supple, trachea midline. No JVD or lymphadenopathy. CARDIOVASCULAR: Regular rate and rhythm without murmurs, gallops, or rubs. RESPIRATORY: Breath sounds equal bilaterally. No accessory muscle use. GASTROINTESTINAL: Abdomen soft, non-tender, nondistended. MUSCULOSKELETAL: No cyanosis, or edema. BACK: Nontender without obvious deformity. No CVA tenderness. Hospital Course Ms. Leon is a 76-year-old female with a history of peptic ulcer disease with gastrectomy who came to the emergency department due to generalized weakness. ED workup indicated possible UTI, sepsis. CT abdomen pelvis also indicated a large solitary mass in the right lobe of the liver inferiorly. Patient reported 13 pound weight loss over [address]-guided biopsy of the liver mass on 03/08/2017. - Sepsis (tachycardia, leukocytosis WBC 29.9, UTI) - Urinary tract infection - Patient was empirically started on ceftriaxone. - Culture growing Enterobacter and Citrobacter. Both sensitive to ciprofloxacin - We discontinued abx. She has had adequate treatment. - Probable GI blood loss anemia - Hgb dropped from 9.4 --> 8.4 --> 7.3 --> 8.5 status post one unit PRBCs transfusion - GI is following. 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 - I discussed with interventional radiologist who stated that there is a soft tissue density near the gallbladder as well. - CT abdomen pelvis on 03/09/2017 indicates possible cholangiocarcinoma. - Follow biopsy results, continue ciprofloxacin 400 mg IV every 12 hours. - MRCP suggestive of cholangiocarcinoma. CA 19-9, CEA elevated. AFP not elevated. - Per GI note, pathologist indicated biopsy indicates malignant tissue. - Medical oncology held multiple discussion with family. Oncology will follow in the outpatient setting. - Hypokalemia - Hypernatremia - Potassium went from 2.9 --> 3.1 --> 3.0 --> 4.1. - Sodium within normal range now. - Acute kidney injury - Creatinine improved from 1.60 -->0.63. - Anxiety - Continue Clonazepam 0.5mg Q8hrs PRN Pt Condition on Discharge: Good Discharge Disposition: Discharge Home Discharge Time: > 30 minutes Discharge Instructions DIET: Follow Instructions for: Full Liquid Diet Additional Diet Instructions: CLEAR LIQUIDS FIRST FOR TONIGHT, THEN BLAND DIET FOR 48 HRS Activities you can perform: Regular-No Restrictions Other Activity Instructions: F/UP W/ PRIMARY CARE 2-3 DAYS Follow up Referrals: Oncology/Hematology - 2 Weeks with Melo Kan MD New Medications: Commode 3-in-1 (Commode 3-in-1) 1 Mis Mis EA .ROUTE DIRECTED, #1 0 Refills Metronidazole (Flagyl) 500 Mg Tab 500 MG PO TID for Infection, #42 TAB 0 Refills Ondansetron Odt (Zofran Odt) 4 Mg Tab 4 MG SL Q6HR PRN for Nausea/Vomiting, #60 TAB 0 Refills Tramadol (Tramadol) 50 Mg Tab 50 MG PO Q8H PRN for PAIN, #20 TAB 0 Refills Walker Rolling/GetGo (Walker Rolling/GetGo) 1 Mis Mis EA .ROUTE DIRECTED for Ambulation, #1 Clonazepam (Klonopin) 0.5 Mg Tab 0.5 MG PO Q8HR PRN for ANXIETY AND/OR AGITATION, #30 TAB Pantoprazole (Pantoprazole) 40 Mg Tab 40 MG PO DAILY for Reflux, #30 TAB 3 Refills Continued Medications: Buspirone (Buspirone) 10 Mg Tab 10 MG PO BID for Anxiety, TAB 0 Refills Discontinued Medications: [Doesn't Know] () Boris Ramires DO Mar 13, 2017 12:51 pm
[2017-03-13] MEDS ORDERED: METR-1 PO (14:05)
[2017-03-13 19:07] LABS: C. DIFF EPI 027 PRESUMPTIVE NEGATIVE (NEGATIVE)
[2017-03-14] MEDS ORDERED: PANTOPRAZOLE SOD 40 MG DELAYED RELEASE TAB PO SCH (09:00)
--- NOTE | 2017-03-15 08:08 | MB ---
cc: TAMIA PEREZ M.D. YASSINE BERGMAN DATE OF CONSULTATION: 03/12/2017 DATE OF : 1940 REQUESTING PHYSICIAN: Hospitalist service. PRIMARY CARE PHYSICIAN Tamia Perez MD. 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 CHIEF COMPLAINT 1. The patient reports a 4-month history of progressive loss of appetite, worsening fatigue and weakness. 2. Over the past 5 months. She reports losing 15 pounds. 3. The patient reports having dark bilious vomitus for the past 2 to 3 months. HISTORY OF PRESENT ILLNESS Ms. Leon is a very pleasant 76-year-old female originally from [place], [place]. 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 She presently lives at home with her in [place]. Ms. Leon reports being in her usual fair state of health up until about 5 months ago, since then she has had complaints of increasing difficulty holding down oral intake as a result of nausea and vomiting. She reports feeling increasingly weak and tired and reports having lost approximately 15 pounds over this period of time. In addition to this she reports having increasing difficulty breathing with minimal exertion. The patient's daughter reports the patient has been having dark tarry stools and vomiting which contains "dark material" as well. The patient was hospitalized on 03/07/2017 with the above-noted complaints or further workup and management. Imaging studies were performed of the abdomen and pelvis on 03/07 and 03/09/2017, she was noted to have a complex cystic solid mass associated with necrosis involving the involving the right lobe of the liver and the rebecca hepatis area. There were also bilateral small pleural effusions. Findings were concerning for an underlying malignancy. 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 Immunohistochemical stains were positive for CK7, CK5/6, MUC 5, the tumor was negative for cytokeratin 20, hepatocyte and MUC 2. The differential diagnosis included metastatic upper GI malignancy, cholangiocarcinoma, pancreatic carcinoma. Lung primary and breast primaries were not ruled out. PAST MEDICAL HISTORY 1. Personal history of tobaccoism (40 pack-year history). 2. COPD. 3. Hypertension. 4. Gastroparesis. 5. History of large gastric ulcers with gastric perforation. 6. Anxiety. 7. History of cerebrovascular accident. PAST SURGICAL HISTORY The patient underwent partial gastrectomy about 40 years ago following a ruptured / perforated gastric ulcer. Hysterectomy. Bladder suspension surgery. FAMILY HISTORY Mother of breast cancer in her 70s, sister of breast cancer in her late 70s, father of a stroke at the age of 65. ALLERGIES NO KNOWN DRUG ALLERGIES. MEDICATIONS: Current inpatient medications: 1. Ciprofloxacin 400 mg IV q.12 h 2. Tylenol 650 mg p.o. q.4 h as needed for fever. 3. DuoNeb 1 ampule q. 2 hours as needed for wheezing. 4. BuSpar 10 mg p.o. q.12 h as needed for moderate to severe anxiety. 5. Clonazepam 0.5 mg q.8 h as needed for anxiety. 6. Lovenox 40 mg Subcu q.24 h. 7. Naloxone 0.4 mg IV Needed for more for respiratory depression. 8. Zofran 4 mg IV q.6 h as needed for nausea and vomiting. 9. Pantoprazole 40 mcg IV q.12 h 10. Potassium chloride 10 mEq p.o. q. 8 hours. 11. Promethazine 25 mg IM q.6 h as needed for nausea and vomiting. 12. Senokot 17.2 mg p.o. q.12 h as needed for constipation. REVIEW OF SYSTEMS 13-point review of systems were obtained the following pertinent positives and negatives: CONSTITUTIONAL: The patient reports generalized fatigue, weakness, loss of appetite, weight loss. She denies fevers or chills. HEAD, EYES, EARS, NOSE, AND THROAT: The patient denies headaches, blurry vision. She denies soreness in the throat. RESPIRATORY: Exertional dyspnea, she reports chronic cough without hemoptysis or pleuritic chest pain. CARDIOVASCULAR SYSTEM: Denies angina-like chest pain, PND, orthopnea. She reports trace lower extremity edema. GASTROINTESTINAL: Please see HPI for details. GENITOURINARY: Denies dysuria, hematuria, urinary incontinence. CENTRAL NERVOUS SYSTEM: Denies any focal sensory motor deficits but reports feeling generally weak. PHYSICAL EXAMINATION VITAL SIGNS: Indicate temperature of 98.4 degrees Fahrenheit, heart rate 108 beats per minute, respiratory rate 18, blood pressure 163/80, O2 sats 97% 2 liters nasal cannula. GENERAL APPEARANCE: Ms. Leon is an elderly and frail-appearing female, she is sitting up in bed, she appears to be no acute distress. HEAD, EYES, EARS, NOSE, AND THROAT: Head atraumatic, normocephalic, conjunctive are mildly pale sclerae are anicteric, EOMI, PERRLA, oral exam no pharyngeal erythema. NECK: Neck exam no palpable cervical or supraclavicular adenopathy. RESPIRATORY: Poor breath sounds, she has distal sounding breath sounds with prolonged expiratory phase, occasional coarse conducted sounds, occasional wheezes and rhonchi. CARDIOVASCULAR SYSTEM: Tachycardiac, regular, S1-S2. No obvious murmurs, gallops. BREAST: The breast examination was preformed in the presence of a female nurse braille proofreader: Bilateral breasts reexamined, no skin changes, no obvious masses were noted. No axilla lymphadenopathy was appreciated. ABDOMEN: Vertical laparotomy scar is noted. The abdomen is tender in the upper right quadrant. There is tympany to percussion. No definite organ enlargement on light palpation. EXTREMITIES: Trace pretibial edema. No calf tenderness. CENTRAL NERVOUS SYSTEM: No focal sensory motor deficits. MUSCULOSKELETAL: Diffuse muscle aches appreciated. HEALTH CARE MAINTENANCE The patient's most recent mammogram was performed in 2016. LABORATORY FINDINGS Blood work dated 03/12/2017: WBC count 1.2, hemoglobin 8.3 gm/dl, hematocrit 26.3%, MCV 72, RDW is 18, platelet counts 441, absolute neutrophil count is 10.5. Chemistries: Sodium 138, potassium 4.1, chloride 107, bicarb 22.4, BUN 30, creatinine 0.6, and glucose 105, calcium 7.7, total bilirubin 0.4, total direct bilirubin 0.2, AST 28, ALT 19, alkaline phosphatase 116, total protein is 5.3, albumin is 1.6. CA19-9 is 181, CEA level 6.8, ALPHA-FETOPROTEIN 2.5. Pathology: Dated 03/09/2017: Image guided biopsy of liver mass indicates adenosquamous carcinoma. COMMENT; Biopsy contains poorly differentiated non-small cell carcinoma composed predominantly of tumor cells with abundant glassy eosinophilic cytoplasm demonstrating focal gland formation and scattered mucin producing cells. Immunohistochemical studies with appropriate positive negative control her performed. These results indicate CK positive, and AUC 5, positive, CK 5/6 positive. P63 positive, CKAE 1/ AE3 positive. MUC negative. IMAGING STUDIES: CT scan of the abdomen with IV contrast dated 03/09/2017 indicates no evidence of hemorrhage. Complex cystic and solid mass associated with the fundus of the gallbladder and right lobe of the liver worrisome for possible cholangiocarcinoma. New small bilateral pleural effusions are appreciated. Small volume ascites is stable Colonic diverticula. Small hiatal hernia. ASSESSMENT Ms. Leon is a very pleasant 76-year-old female who presents to the hospital with a five-month history of loss of appetite, nausea, weight loss and progressive fatigue and frailty. As an outpatient she underwent evaluation with her PCP as well as gastroenterology, her workup Included endoscopic evaluation about 3 or 4 months ago which revealed no causative etiology of her symptoms. Her symptoms however continued to progress and she presented to [facility] on 03/08[facility]2017 For further workup and evaluation. Imaging studies were performed and she was found to have a large Malignant appearing mass involving the inferior portion of the right hepatic lobe with suspected involvement /Extension from the gallbladder. Further staging studies including CT scan of the thorax indicates subcentimeter pulmonary nodules but no definite source of malignancy. The liver lesion was biopsied and pathologic findings are summarized above; based on the immunohistochemical staining pattern a pancreatic or biliary primary or an upper GI malignancy is suspected. I did review the imaging studies and pathologic findings with the patient and her family. I met with the family members at bedside and had an in-depth discussion with them regarding imaging study findings as well as pathologic findings. I've explained that the patient will require a multidisciplinary approach for further management. Her case will be presented at the upcoming oncology tumor board which is attended by surgical oncology, radiation oncology, diagnostic radiology, pathology and medical oncology. The leading differential diagnoses are extrahepatic cholangiocarcinoma with direct extension into the liver or metastatic disease to the liver versus some other upper GI malignancy which is yet not identified. We talked about additional diagnostic workup including PET/CT imaging as an outpatient and even the possibility of an exploratory laparoscopic procedure. We talked about various treatment modalities including palliative systemic chemotherapy, concurrent chemoradiotherapy either as definitive treatment or in the neoadjuvant setting leading up to surgical resection. The patient initially informed me that she was unwilling to consider aggressive therapeutic interventions, however after discussing with the family she is willing to pursue a diagnostic workup followed by systemic therapy or even surgical intervention. I will schedule her to meet with me in my outpatient clinic in the upcoming week. I've also requested evaluation with surgical oncology. MD URIEL Nath/yazan /8:37 AM /7:51 AM GIOVANNI
== END 2017-03-13 15:28 | disposition home health service (06) | DRG 872 ==
LOC: PHED 15:14 → PHEDA 18:12 → PH3A 20:24
PROVIDERS: ADMIT Hospitalist; ATTEND Hospitalist
PROC: 0FB13ZX Excision of Right Lobe Liver, Percutaneous Approach, Diagnostic (ICD-10-PCS; principal; 2017-03-08)
PROC: 30233N1 Transfusion of Nonautologous Red Blood Cells into Peripheral Vein, Percutaneous Approach (ICD-10-PCS; 2017-03-09)
DX: A41.9 Sepsis, unspecified organism (principal); N17.9 Acute kidney failure, unspecified; E87.0 Hyperosmolality and hypernatremia; J44.9 Chronic obstructive pulmonary disease, unspecified; E86.0 Dehydration; K92.2 Gastrointestinal hemorrhage, unspecified; C22.9 Malignant neoplasm of liver, not specified as primary or secondary; N30.00 Acute cystitis without hematuria; D64.89 Other specified anemias; I10 Essential (primary) hypertension; K31.84 Gastroparesis; E87.6 Hypokalemia; R00.0 Tachycardia, unspecified; Z87.11 Personal history of peptic ulcer disease; R63.4 Abnormal weight loss; K44.9 Diaphragmatic hernia without obstruction or gangrene; R35.0 Frequency of micturition; F41.9 Anxiety disorder, unspecified; K30 Functional dyspepsia; Z86.73 Personal history of transient ischemic attack (TIA), and cerebral infarction without residual deficits; Z80.3 Family history of malignant neoplasm of breast; Z82.3 Family history of stroke; Z87.891 Personal history of nicotine dependence
CPT/HCPCS: 36430; 47000; 71020; 71250; 74176; 74177; 74183; 76377; 77012; 80048; 80053; 80076; 81001; 82105; 82378; 82607; 82977; 83540; 83550; 83605; 83690; 83735; 84443; 85007; 85025; 85027; 85610; 86301; 86850; 86900; 86901; 86920; 87040; 87077; 87086; 87186; 87493; 88307; 88341; 88342; 93005; 94620; 94640; 94664; 96361; 96374; A9579; C9113; J0696; J0744; J0780; J1650; J1756; J1940; J2060; J2405; J2550; J3010; J3480; J7030; J7050; J7070; P9016; Q9967